=== PATIENT | female | born 1985 | race Caucasian/White ===

== ENCOUNTER 2017-02-17 02:05 | Emergency (ER) | payer SELFPAY ==
[~2017-02-17] VITALS: Ht 157.5 cm; Wt 65.9 kg
[~2017-02-17 02:05] MED LIST: SULF800T23 PO
[2017-02-17 02:16] VITALS: TEMP 36.8; Ht 157.5 cm; Wt 65.9 kg
[2017-02-17] MEDS ORDERED: KETOROLAC TROMETHAMINE 30 MG/ML VIAL IV STA (02:43)
[2017-02-17] MEDS ORDERED: SODIUM CHLORIDE 0.9% 1000ML 1,000 ML IV STA (02:43)
[2017-02-17 03:00] LABS: BASO % 0.8 %; BASO ABS # 0.05 K/uL (0-0.2); COMPLETE YES; EOS % 2.7 %; HEMATOCRIT 39.7 % (37-47); IG% 0.3 %; LYMPH % 32.1 %; LYMPH ABS # 2.14 K/uL (1.2-3.4); MEAN CELL VOLUME 97.1 fL (80-100); MEAN PLATELET VOLUME 9.5 fL (7.4-10.4); MONO % 7.5 %; NEUT % 56.6 %; PLATELET COUNT 240 K/uL (130-400); RED BLOOD COUNT 4.09 M/uL (4.2-5.4); WHITE BLOOD COUNT 6.66 K/uL (4.8-10.8)
[2017-02-17 03:13] LABS: POINT OF CARE TROPONIN I < 0.030 ng/ml (0-0.045)
[2017-02-17 03:18] LABS: BUN/CREATININE RATIO 16.6 (10-20); CALCIUM 9.2 mg/dl (8.5-10.1); CREATININE 0.91 mg/dl (0.60-1.20); POTASSIUM 3.6 mmol/L (3.5-5.1)
[2017-02-17 03:37] LABS: PREG INTERNAL NEGATIVE QC NEG CLEAR BACKGROUND; PREG INTERNAL POSITIVE QC POS CONTROL LINE
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
[2017-02-17 04:48] VITALS: BP 102/69; PULSE 65; O2SAT 100
--- NOTE | 2017-02-17 06:52 | DIAGNOSTIC IMAGING REPORT ---
CHEST ONE VIEW PORTABLE CLINICAL HISTORY: Atypical chest pain COMPARISON STUDY: No previous studies for comparison. FINDINGS: The cardiac and mediastinal contours are normal. There is no evidence of focal pulmonary consolidation. There is no evidence of failure. No pleural effusions are visualized.[ IMPRESSION: No active disease in the chest. Electronically signed by: Kadeem Huitron M.D. 02/17/2017 6:51 AM Dictated Date/Time: 02/17/2017 6:51 AM
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
== END 2017-02-17 04:50 | disposition home or self-care (01) ==
LOC: C.EDB 02:07
DX: R07.89 Other chest pain (principal); F17.200 Nicotine dependence, unspecified, uncomplicated; Z88.0 Allergy status to penicillin; Z88.1 Allergy status to other antibiotic agents; Z88.5 Allergy status to narcotic agent

== ENCOUNTER 2017-04-09 10:47 | Emergency (ER) | payer SELFPAY ==
[~2017-04-09] VITALS: Ht 160 cm; Wt 63.6 kg
[2017-04-09 10:51] VITALS: BP 123/75; PULSE 98; TEMP 36.6; O2SAT 99; Ht 160 cm; Wt 63.6 kg
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
== END 2017-04-09 12:35 | disposition home or self-care (01) ==
LOC: C.EDB 10:48 → C.EDC 12:35
DX: S09.90XA Unspecified injury of head, initial encounter (principal); Y04.0XXA Assault by unarmed brawl or fight, initial encounter; Y92.009 Unspecified place in unspecified non-institutional (private) residence as the place of occurrence of the external cause; Z86.14 Personal history of Methicillin resistant Staphylococcus aureus infection; Z85.43 Personal history of malignant neoplasm of ovary; Z80.9 Family history of malignant neoplasm, unspecified; F17.210 Nicotine dependence, cigarettes, uncomplicated

== ENCOUNTER 2018-03-26 21:30 | Emergency (ER) | payer SELFPAY ==
[~2018-03-26] VITALS: Ht 160 cm; Wt 70.1 kg
[2018-03-26 21:33] VITALS: TEMP 36.5; Ht 160 cm; Wt 70.1 kg
[2018-03-26] MEDS ORDERED: LORAZEPAM 2 MG/ML 1 ML VIAL IV STA (22:12)
[2018-03-26] MEDS ORDERED: SODIUM CHLORIDE 0.9% 1000ML 1,000 ML IV ONE (22:15)
[2018-03-26 22:35] LABS: BASO % 0.9 %; BASO ABS # 0.05 K/uL (0-0.2); EOS % 3.5 %; HEMATOCRIT 43.2 % (37-47); HEMOGLOBIN 15.3 g/dL (12.0-16.0); IG# 0.02 K/uL (0.00-0.02); LYMPH % 37.2 %; LYMPH ABS # 2.13 K/uL (1.2-3.4); MEAN CELL VOLUME 96.9 fL (80-100); MEAN CORPUSCULAR HEMOGLOBIN 34.3 pg (25-34); MEAN CORPUSCULAR HGB CONC 35.4 g/dl (32-36); MEAN PLATELET VOLUME 9.1 fL (7.4-10.4); MONO % 6.6 %; MONO ABS # 0.38 K/uL (0.11-0.59); NEUT % 51.5 %; NEUT ABS # 2.94 K/uL (1.4-6.5); PLATELET COUNT 245 K/uL (130-400); RED CELL DISTRIBUTION WIDTH CV 12.8 % (11.5-14.5); RED CELL DISTRIBUTION WIDTH SD 44.9 fL (36.4-46.3); WHITE BLOOD COUNT 5.72 K/uL (4.8-10.8)
--- NOTE | 2018-03-26 22:35 | DIAGNOSTIC IMAGING REPORT ---
CT HEAD WITHOUT CONTRAST (CT) CLINICAL HISTORY: Seizure. Headache. Neuro symptoms. COMPARISON STUDY: No previous studies for comparison. TECHNIQUE: Axial CT of the brain is performed from the vertex to the skull base. IV contrast was not administered for this examination. A dose lowering technique was utilized adhering to the principles of ALARA. CT DOSE: 537.48 mGy.cm FINDINGS: No intra or extra-axial mass lesions are visualized. There is no CT evidence of acute cortical infarction. There is no evidence of midline shift. There is no acute hemorrhage. No calvarial fractures are visualized. There is no evidence of pathologic ventricular dilatation. There is no evidence of acute sinusitis IMPRESSION: Normal noncontrast head CT. Electronically signed by: Kadeem Huitron M.D. 03/26/2018 10:34 PM Dictated Date/Time: 03/26/2018 10:33 PM
[2018-03-26 22:38] VITALS: O2SAT 98
[2018-03-26 22:46] LABS: INR 0.9 (0.9-1.1); PTT PATIENT 26.2 SECONDS (21.0-31.0)
[2018-03-26 23:02] LABS: ALBUMIN 3.8 gm/dl (3.4-5.0); CALCIUM 8.7 mg/dl (8.5-10.1); CREATININE 0.89 mg/dl (0.60-1.20); POTASSIUM 3.4 mmol/L (3.5-5.1); TOTAL PROTEIN 7.3 gm/dl (6.4-8.2)
[2018-03-26] MEDS ORDERED: IBUP-1050 PO (23:06)
[2018-03-27 00:51] VITALS: BP 105/70; PULSE 71; O2SAT 97
--- NOTE | 2018-03-27 05:56 | EMERGENCY ROOM VISIT NOTE ---
History First contact with patient: 21:56 Chief Complaint: SEIZURE Stated Complaint: SEIZURE, SPEECH PROBLEMS History of Present Illness The patient is a 32 year old female who presents to the Emergency Room with complaints of seizure that occurred about 11 hours ago. The patient states that she has a history of childhood seizures, however as she entered adulthood these have significantly stopped. She states that in her adult life she is only had 2 or 3 seizures, with the last being roughly 4 years ago. She does not follow with neurology, nor she medicated for her seizures. She states that she was at work today in the morning, and was feeling flushed. She evidently had a witnessed seizure that occurred for 1-2 minutes. The patient was not post ictal, and was able to go home afterwards. The patient states that around 6 PM, roughly 4 hours ago, she noticed that her speech was slowing, and she was having difficulty saying her words. The patient does not report a repeat seizure around that time, and has never had this occur in the past. The patient is not having lightheadedness, neck pain, chest pain, chest tightness, shortness of breath, numbness, or paresthesias. No loss of strength in her arms or legs. She denies chance of , and does not take medication on a regular basis. She is without pain. Her primary concern is for her speech and her seizure earlier today. Review of Systems More than 10 systems were reviewed and otherwise negative with the exception of history of present illness. Past Medical/Surgical History Medical Problems: (1) MRSA (methicillin resistant Staphylococcus aureus) (2) Ovarian cancer Family History Cancer Social History Smoking Status: Current Every Day Smoker Alcohol Use: occasionally Drug Use: none Marital Status: Housing Status: lives with significant other Occupation Status: employed Current/Historical Medications Scheduled PRN Ibuprofen (Advil), 400-600 MG PO Q6H PRN for Headache or Pain Physical Exam Vital Signs Date Time Temp Pulse Resp B/P (MAP) Pulse Ox O2 Delivery O2 Flow Rate FiO2 03/27/18 00:51 71 16 105/70 97 Room Air 03/26/18 23:41 57 16 98/70 96 Room Air 03/26/18 22:43 71 03/26/18 22:38 98 Room Air 03/26/18 22:38 71 20 113/54 96 Room Air 03/26/18 21:33 36.5 96 20 136/97 95 Physical Exam VITALS: Vitals are noted on the nurse's note and reviewed by myself. Vital signs stable. GENERAL: Well-developed, well-nourished, white female with very slow and deliberate speech. There is no slurring of the words. She is cooperative with the examination. HEAD: Normocephalic atraumatic. EARS: External ear normal. External auditory canals clear, tympanic membranes pearly mejia without erythema or effusion bilaterally. EYES: Pupils equal round and reactive to light and accommodation. Conjunctivae without injection, sclerae without icterus. Extraocular movements intact. NOSE: Patent, turbinates without inflammation or discharge. MOUTH: Mucous membranes moist. Tonsils are not enlarged. Pharynx without erythema, blood, or exudate. Uvula midline. Airway patent. NECK: Supple without nuchal rigidity. No lymphadenopathy. No thyromegaly. Cervical spine is nontender. HEART: Regular rate and rhythm without murmurs gallops or rubs. LUNGS: Clear to auscultation bilaterally without wheezes, rales or rhonchi. No retractions or accessory muscle use. ABDOMEN: Positive normal bowel sounds x 4. Soft, nontender, without masses or organomegaly. No guarding or rebound tenderness. MUSCULOSKELETAL: No muscle atrophy, erythema, or edema noted. Full range of motion in all extremities. No tenderness to palpation. Normal gait. Strength 5/5 throughout. NEURO: Patient was alert and oriented to person place and time. CN II through XII grossly intact. No focal neurological deficits. Deep tendon reflexes 2+ throughout. SKIN: The skin was without rashes, erythema, edema, or bruising. Capillary refill less than 2 seconds. Medical Decision & Procedures ER Provider Diagnostic Interpretation: CT HEAD WITHOUT CONTRAST (CT) CLINICAL HISTORY: Seizure. Headache. Neuro symptoms. COMPARISON STUDY: No previous studies for comparison. TECHNIQUE: Axial CT of the brain is performed from the vertex to the skull base. IV contrast was not administered for this examination. A dose lowering technique was utilized adhering to the principles of ALARA. CT DOSE: 537.48 mGy.cm FINDINGS: No intra or extra-axial mass lesions are visualized. There is no CT evidence of acute cortical infarction. There is no evidence of midline shift. There is no acute hemorrhage. No calvarial fractures are visualized. There is no evidence of pathologic ventricular dilatation. There is no evidence of acute sinusitis IMPRESSION: Normal noncontrast head CT. Laboratory Results 03/26/18 22:20 Red Blood Count 4.46, Mean Corpuscular Volume 96.9, Mean Corpuscular Hemoglobin 34.3, Mean Corpuscular Hemoglobin Concent 35.4, Mean Platelet Volume 9.1, Neutrophils (%) (Auto) 51.5, Lymphocytes (%) (Auto) 37.2, Monocytes (%) (Auto) 6.6, Eosinophils (%) (Auto) 3.5, Basophils (%) (Auto) 0.9, Neutrophils # (Auto) 2.94, Lymphocytes # (Auto) 2.13, Monocytes # (Auto) 0.38, Eosinophils # (Auto) 0.20, Basophils # (Auto) 0.05 03/26/18 22:20 Test 03/26/18 22:20 03/26/18 22:25 03/26/18 22:30 03/26/18 22:49 White Blood Count 5.72 K/uL (4.8-10.8) Red Blood Count 4.46 M/uL (4.2-5.4) Hemoglobin 15.3 g/dL (12.0-16.0) Hematocrit 43.2 % (37-47) Mean Corpuscular Volume 96.9 fL (80-100) Mean Corpuscular Hemoglobin 34.3 pg (25-34) Mean Corpuscular Hemoglobin Concent 35.4 g/dl (32-36) Platelet Count 245 K/uL (130-400) Mean Platelet Volume 9.1 fL (7.4-10.4) Neutrophils (%) (Auto) 51.5 % Lymphocytes (%) (Auto) 37.2 % Monocytes (%) (Auto) 6.6 % Eosinophils (%) (Auto) 3.5 % Basophils (%) (Auto) 0.9 % Neutrophils # (Auto) 2.94 K/uL (1.4-6.5) Lymphocytes # (Auto) 2.13 K/uL (1.2-3.4) Monocytes # (Auto) 0.38 K/uL (0.11-0.59) Eosinophils # (Auto) 0.20 K/uL (0-0.5) Basophils # (Auto) 0.05 K/uL (0-0.2) RDW Standard Deviation 44.9 fL (36.4-46.3) RDW Coefficient of Variation 12.8 % (11.5-14.5) Immature Granulocyte % (Auto) 0.3 % Immature Granulocyte # (Auto) 0.02 K/uL (0.00-0.02) Prothrombin Time 9.7 SECONDS (9.0-12.0) Prothromb Time International Ratio 0.9 (0.9-1.1) Activated Partial Thromboplast Time 26.2 SECONDS (21.0-31.0) Partial Thromboplastin Ratio 1.0 Anion Gap 9.0 mmol/L (3-11) Est Creatinine Clear Calc Drug Dose 84.4 ml/min Estimated GFR () 98.7 Estimated GFR (Non- 85.2 BUN/Creatinine Ratio 11.9 (10-20) Calcium Level 8.7 mg/dl (8.5-10.1) Magnesium Level 2.1 mg/dl (1.8-2.4) Total Bilirubin 0.3 mg/dl (0.2-1) Aspartate Amino Transf (AST/SGOT) 23 U/L (15-37) Alanine Aminotransferase (ALT/SGPT) 25 U/L (12-78) Alkaline Phosphatase 78 U/L (45-117) Total Protein 7.3 gm/dl (6.4-8.2) Albumin 3.8 gm/dl (3.4-5.0) Globulin 3.5 gm/dl (2.5-4.0) Albumin/Globulin Ratio 1.1 (0.9-2) Lipase 127 U/L (73-393) Thyroid Stimulating Hormone (TSH) 1.280 uIu/ml (0.300-4.500) Lyme Disease IgG Antibody NEG (NEG) Lyme Disease IgM Antibody NEG (NEG) Bedside Troponin I < 0.030 ng/ml (0-0.045) Urine Color YELLOW Urine Appearance CLEAR (CLEAR) Urine pH 5.5 (4.5-7.5) Urine Specific [place] 1.010 (1.000-1.030) Urine Protein NEG (NEG) Urine Glucose (UA) NEG (NEG) Urine Ketones NEG (NEG) Urine Occult Blood 3+ (NEG) Urine Nitrite NEG (NEG) Urine Bilirubin NEG (NEG) Urine Urobilinogen NEG (NEG) Urine Leukocyte Esterase NEG (NEG) Urine WBC (Auto) 1-5 /hpf (0-5) Urine RBC (Auto) 0-4 /hpf (0-4) Urine Hyaline Casts (Auto) 1-5 /lpf (0-5) Urine Epithelial Cells (Auto) >30 /lpf (0-5) Urine Bacteria (Auto) NEG (NEG) Urine Test NEG (NEG) Urine Opiates Screen NEG (NEG) Urine Methadone, Qualitative NEG (NEG) Urine Barbiturates NEG (NEG) Urine Phencyclidine (PCP) Level NEG (NEG) Ur Amphetamine/Methamphetamine NEG (NEG) MDMA (Ecstasy) Screen NEG (NEG) Urine Benzodiazepines Screen NEG (NEG) Urine Cocaine Metabolite NEG (NEG) Urine Marijuana (THC) NEG (NEG) Ethyl Alcohol mg/dL 172.8 mg/dl (0-3) Medications Administered Medications (Trade) Dose Ordered Sig/Estefani Route Start Time Stop Time Status Last Admin Dose Admin Sodium Chloride 1,000 ml @ 999 mls/hr Q1H1M ONCE IV 03/26/18 22:15 03/26/18 23:15 DC 03/26/18 22:49 999 MLS/HR Lorazepam (Ativan Inj) 0.5 mg NOW STAT IV 03/26/18 22:12 03/26/18 22:17 DC 03/26/18 22:49 0.5 MG ED Course Physical exam and history were performed. Nursing notes, EMR, and Medication List were personally reviewed. Patient appears to have suffered from a seizure earlier today. She reports having changes in her speech this afternoon. On examination the patient does not appear toxic. She is very slow and deliberate with her speaking. She does not have any limb weakness or ataxia. No facial drooping to suggest stroke. IV access was established and labs were obtained. The patient was hydrated and medicated as above. She was cared for under seizure precautions. CT scan of the head was ordered. The patient's blood work is as above and was reviewed. She does not have a significantly elevated white blood cell count, gross anemia, bandemia, or significant electrolyte imbalance. Lipase and transaminases are not diagnostic. TSH is euthyroid state. Urine is without evidence of infection. Drug of abuse screen is negative. The patient' s alcohol is elevated at 172, which certainly could be contributing to some of her symptoms. CT scan of the head was without acute findings per my and radiology's interpretation. By discharge On reevaluation the patient felt much better, although her speech did remain slow. I discussed the case with the on-call neurologist, Dr. Valles, who was comfortable with outpatient follow-up with neurology for the patient. I did discuss options of care with the patient, who voiced a strong preference for discharge home. Overall the patient's symptoms this morning may have been related to a seizure, but I suspect that her evening symptoms are related to alcohol intoxication. 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 This was faxed to the state and the patient was instructed not to drive until further notice. The patient was pleased with this plan and voiced understanding. She was given further instructions as below and otherwise invited back to the ER with any new, , worsening, or concerning symptoms. The patient was discharged home under the care of a friend who is acting as the coach driver today. The chart was completed utilizing [employer] Speech Voice Recognition Software. Grammatical errors, random word insertions, pronoun errors, and incomplete sentences are an occasional consequence of this system due to software limitations, ambient noise, and hardware issues. Any formal questions or concerns about the content, text, or information contained within the body of this dictation should be directly addressed to the provider for clarification. . Medical Decision Differential diagnosis: Etiologies such as infection, hypoglycemia, electrolyte abnormalities, cardiac sources, intracerebral event, trauma, toxicologic, neurologic, as well as others were entertained. Impression Primary Impression: Seizure Additional Impressions: Alcohol intoxication Speech disturbance Departure Information Dispostion Home / Self-Care Condition GOOD Referrals Asia Valles D.O. Forms HOME CARE DOCUMENTATION FORM, Work Instructions, Additional Instructions: Patient was seen and evaluated today in the emergency department fo medical care. Return to work on 03/30/2018. Please excuse. IMPORTANT VISIT INFORMATION Patient Instructions My [facility] Additional Instructions You were seen and evaluated today on an emergency basis only. This is not a substitute for, or an effort to provide, complete comprehensive medical care. It is not possible to recognize and treat all injuries or illnesses in a single emergency department visit. For this reason it is recommended that you followup with Neurology for ongoing care and evaluation. We have provided you the information for Dr. Valles below. Call the office to help schedule an appointment. Drink plenty of fluids and remain well-hydrated. Avoid alcohol as this may trigger your symptoms. Do not drive a vehicle or operate heavy machinery until cleared by neurology. We are mandatory report appears to the [place] Department of transportation , and they may contact you regarding your visit. You are welcome to return to the emergency department anytime with new, worsening, or concerning symptoms. Work Instructions Additional Work Instructions: Patient was seen and evaluated today in the emergency department for medical care. Return to work on 03/30/2018. Please excuse. Problem Qualifiers
== END 2018-03-27 01:56 | disposition home or self-care (01) ==
LOC: C.EDB 21:31 → C.EDA 03-27 01:56
DX: R56.9 Unspecified convulsions (principal); F10.920 Alcohol use, unspecified with intoxication, uncomplicated; R47.9 Unspecified speech disturbances; A49.02 Methicillin resistant Staphylococcus aureus infection, unspecified site; D49.59 Neoplasm of unspecified behavior of other genitourinary organ; F17.200 Nicotine dependence, unspecified, uncomplicated

== ENCOUNTER 2020-05-15 07:33 | Inpatient (IN) ==
[2020-05-15] MEDS ORDERED: OXYTOCIN 30 UNITS/500 ML BAG IV PRN (09:39)
--- NOTE | 2020-05-15 10:09 | Obstetrical Progress Note ---
Date of Service May 15, 2020 Assessment & Plan Admission and Anticipated Discharge Date Admission Date: May 15, 2020 Subjective Pt doing well Reviewed PNC Hx of drug use- Urine tox ordered Hx of MRSA-Nasal swab ordered FHR; CAT1 VE; ft/25%/post EFW; 7-8lbs Jones bulb placed with 30 cc saline pt tolerated procedure well Starting Pitocin augmentation Results & Data ([facility]) Vital Signs (Past 12 Hours) Vital Signs Temp Pulse Resp BP 05/15/20 07:46 36.7 C 90 16 123/75
[2020-05-15] MEDS: LACTATED RINGER'S 1,000 ML IV PRN ×3 (10:27→23:09)
[2020-05-15 10:50] LABS: Amphetamines+Metham, Urine Neg (Neg); Barbiturates, Urine Neg (Neg); Benzodiazepine, Urine Neg (Neg); Cocaine, Urine Neg (Neg); MDMA (Ecstacy), Urine Neg (Neg); Methadone, Urine Neg (Neg); Opiate, Urine Neg (Neg); Phencyclidine, Urine Neg (Neg)
[2020-05-15 10:52] LABS: Hematocrit (blood only) 32.2 % (37-47); Mean Corpuscular Hemoglobin 33.3 pg (25-34); Mean Corpuscular Volume 97.6 fL (80-100); Mean Platelet Volume 9.8 fL (7.4-10.4); Platelet Count 211 K/uL (130-400); RDW Coefficient of Variation 13.8 % (11.5-14.5); RDW Standard Deviation 48.7 fL (36.4-46.3); White Blood Count 7.14 K/uL (4.8-10.8)
[2020-05-15 11:02] LABS: Mean Corpuscular Hgb Conc 34.2 g/dL (32-36)
[2020-05-15] MEDS: OXYTOCIN 30 UNITS/500 ML BAG IV PRN (11:07)
[2020-05-15 11:08] LABS: Albumin Level 2.9 gm/dl (3.4-5.0); BUN Creatinine Ratio 13.4 (10-20); Calcium 9.6 mg/dl (8.5-10.1); Creatinine Clr Calc Pharmacy 112.2 ml/min; Est GFR (African American) 130.1; Est GFR (Non-African American) 112.3; Potassium 3.9 mmol/L (3.5-5.1)
[2020-05-15 11:10] LABS: Albumin Globulin Ratio 0.7 (0.9-2); Bilirubin,Total 0.4 mg/dl (0.2-1); Total Protein 6.9 gm/dl (6.4-8.2)
[2020-05-16] MEDS: LACTATED RINGER'S 1,000 ML IV PRN ×2 (09:33→14:37)
--- NOTE | 2020-05-16 09:43 | Obstetrical Progress Note ---
Date of Service May 16, 2020 Assessment & Plan Admission and Anticipated Discharge Date Admission Date: May 15, 2020 Physical Exam Genitourinary: Manual OB Exam: + cervical dilation 4 cm, + cervical effacement 90% and + station -2 OB Exam Monitor Tracing: + external FHT monitor used, + external uterine monitor used, + category I and + normal FHT variability Results & Data ([facility]) Vital Signs (Past 12 Hours) Vital Signs Temp Pulse Resp BP 05/16/20 09:17 58 L 103/54 L 05/16/20 09:16 36.6 C 18 05/16/20 08:09 58 L 105/56 L 05/16/20 07:13 74 125/61 05/16/20 07:05 36.8 C 20 05/16/20 05:13 36.9 C 18 05/16/20 04:40 63 117/63 05/16/20 03:27 36.8 C 05/16/20 03:10 64 112/66 05/16/20 02:10 63 101/59 L 05/16/20 01:28 36.8 C 18 05/16/20 01:10 78 111/66 05/16/20 00:08 75 114/64 05/15/20 23:08 76 129/69 05/15/20 22:08 69 118/67 05/15/20 22:07 36.9 C 18
[2020-05-16] MEDS ORDERED: ePHEDrine sulfate 50 MG/ML AMP ONE (09:47)
[2020-05-16] MEDS ORDERED: BUPIVACAINE 0.25% 30 ML VIAL ONE (09:48)
[2020-05-16] MEDS ORDERED: fentaNYL citrate 100 MCG/2 ML VIAL ONE (09:48)
[2020-05-16] MEDS ORDERED: fentaNYL 2MCG/ML ROPIVACAINE 1.25MG/ML 100 ML BAG EPI ONE (09:49)
--- NOTE | 2020-05-16 10:34 | Anesthesiology Consultation ---
Date of Service May 16, 2020 Assessment & Plan Chart Review Chart Review: Acceptable Risk for Labor Epidural Consults Requested none History Height/Weight Height: 5 ft 3 in Weight: 79.832 kg Allergies Allergy/AdvReac Type Severity Reaction Status Date / Time amoxicillin Allergy Mild Hives Verified 05/15/20 07:56 codeine Allergy Mild Anaphylaxis Verified 05/15/20 07:56 morphine Allergy Mild Anaphylaxis Verified 05/15/20 07:56 Penicillins Allergy Mild Hives Verified 05/15/20 07:56 Medications Home Medications Medication Instructions Recorded Confirmed Last Taken acetaminophen [Tylenol] 650 mg PO QID PRN 05/15/20 05/15/20 Unknown vit no.[id number] 1 tab PO DAILY 05/15/20 05/15/20 05/14/20 00:01 [ Vitamin] Active Medications Generic Name Dose Route Start Last Admin Trade Name Freq PRN Reason Stop Dose Admin Lactated Ringer's 1,000 mls @ 125 mls/hr 05/15/20 09:39 05/16/20 09:33 Lr IV 05/17/20 09:38 999 mls/hr .Q8H PRN Administration L&D Protocol Protocol Oxytocin 30 units in 500 mls @ 0 mls/hr 05/15/20 10:29 05/16/20 09:55 Pitocin IV 05/17/20 10:28 0 units/hr .Q0M PRN 0 mls/hr Labor Induction/Augmentation Titration Protocol 0 UNITS/HR Past Medical History Medical History Anxiety and depression patient declines but in record. 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 Substance abuse Past Surgical History Surgical History H/O wisdom tooth extraction Social History Smoking Status: Current every day smoker tobacco type: cigarettes Smoking cigarettes per day: 4 Hx Alcohol Use: Yes (last used approx 05/04/2020) Alcohol type: other alcohol intake frequency: a few times a month Alcohol Intake Frequency Comment: while patient has used alcohol last time used was approx 05/04/2020 Hx Substance Use: Yes (uses medical marijuana ) substance use type: marijuana Substance Use Type Other:: medical marijuana Last Used Substance: Days (ago) Last Used Substance Other:: 05/12/2020 Physical Exam Vital Signs Last Vital Signs Temp 36.6 C 05/16/20 09:16 Pulse 62 05/16/20 10:31 Resp 18 05/16/20 09:16 BP 135/85 05/16/20 10:31 Pulse Ox 100 05/16/20 10:30 Testing Laboratory Results 05/15/20 10:25 05/15/20 10:25
[2020-05-16] MEDS ORDERED: diphenhydrAMINE 50 MG/ML VIAL IV PRN (10:36)
[2020-05-16] MEDS ORDERED: NALOXONE HCL 1 MG in SODIUM CHLORIDE 0.9% 1000ML 1,000 ML IV PRN (10:36)
[2020-05-16] MEDS ORDERED: fentaNYL 2MCG/ML ROPIVACAINE 1.25MG/ML 100 ML BAG EPI PRN (10:36)
[2020-05-16] MEDS ORDERED: ePHEDrine sulfate 50 MG/ML AMP IV PRN ×2 (10:36→21:08)
[2020-05-16] MEDS ORDERED: NALOXONE HCL 0.4 MG/1 ML VIAL/CARP IV PRN (10:36)
[2020-05-16] MEDS: OXYTOCIN 30 UNITS/500 ML BAG IV PRN ×2 (10:58→14:04)
--- NOTE | 2020-05-16 17:09 | Obstetrical Progress Note ---
Date of Service May 16, 2020 Assessment & Plan Admission and Anticipated Discharge Date Admission Date: May 15, 2020 Physical Exam Genitourinary: Manual OB Exam: + cervical dilation 4 cm, + cervical effacement 100% and + station -2 OB Exam Monitor Tracing: + external FHT monitor used and + category I Results & Data ([facility]) Vital Signs (Past 12 Hours) Vital Signs Temp Pulse Resp BP Pulse Ox Pulse Ox 05/16/20 17:05 87 100 05/16/20 17:04 66 104/57 L 05/16/20 17:00 98 H 18 98 05/16/20 16:55 102 H 106/62 99 05/16/20 16:50 92 H 96 05/16/20 16:45 98 H 110/62 97 05/16/20 16:40 70 97 05/16/20 16:35 89 96 05/16/20 16:33 90 101/59 L 05/16/20 16:30 87 18 97 05/16/20 16:25 69 97 05/16/20 16:24 60 107/57 L 05/16/20 16:20 77 96 05/16/20 16:15 70 96 05/16/20 16:14 65 101/56 L 05/16/20 16:10 62 98 05/16/20 16:05 65 104/56 L 97 05/16/20 16:00 67 98 05/16/20 15:55 67 97 05/16/20 15:54 61 99/58 L 05/16/20 15:50 75 97 05/16/20 15:45 64 103/55 L 96 05/16/20 15:40 64 97 05/16/20 15:35 65 97 05/16/20 15:34 63 107/59 L 05/16/20 15:30 37.1 C 69 18 96 05/16/20 15:25 61 98 05/16/20 15:23 58 L 119/68 05/16/20 15:20 64 96 05/16/20 15:15 61 96 05/16/20 15:14 61 116/62 05/16/20 15:10 60 96 05/16/20 15:05 61 96 05/16/20 15:03 62 103/62 05/16/20 15:00 60 97 05/16/20 14:55 59 L 96 05/16/20 14:54 58 L 124/65 05/16/20 14:50 60 97 05/16/20 14:45 60 96 05/16/20 14:43 58 L 117/66 05/16/20 14:40 62 96 05/16/20 14:35 61 97 05/16/20 14:33 57 L 124/74 05/16/20 14:30 58 L 18 96 05/16/20 14:25 62 99 05/16/20 14:23 63 122/71 05/16/20 14:20 57 L 97 05/16/20 14:15 58 L 97 05/16/20 14:13 59 L 116/64 05/16/20 14:10 61 96 05/16/20 14:05 58 L 98 05/16/20 14:04 60 113/84 05/16/20 14:00 61 97 05/16/20 13:55 61 99 05/16/20 13:53 59 L 118/61 05/16/20 13:50 60 99 05/16/20 13:45 62 117/60 99 05/16/20 13:44 18 05/16/20 13:40 87 99 05/16/20 13:35 113 H 99 05/16/20 13:34 62 100/52 L 05/16/20 13:30 63 97 05/16/20 13:25 71 98/51 L 98 05/16/20 13:20 64 98 05/16/20 13:17 37.1 C 18 05/16/20 13:15 61 98 05/16/20 13:14 59 L 105/57 L 05/16/20 13:10 65 97 05/16/20 13:05 62 101/52 L 98 05/16/20 13:00 63 98 05/16/20 12:55 62 99 05/16/20 12:53 59 L 102/59 L 05/16/20 12:50 61 97 05/16/20 12:45 60 97 05/16/20 12:44 59 L 102/55 L 05/16/20 12:40 62 97 05/16/20 12:35 61 100 05/16/20 12:33 60 105/58 L 05/16/20 12:30 64 98 05/16/20 12:25 63 97 05/16/20 12:24 62 18 103/52 L 05/16/20 12:20 63 98 05/16/20 12:15 61 99 05/16/20 12:13 60 104/55 L 05/16/20 12:10 60 108/57 L 98 05/16/20 12:07 65 105/59 L 05/16/20 12:05 60 98 05/16/20 12:04 60 111/56 L 05/16/20 12:01 59 L 96/52 L 05/16/20 12:00 60 99 05/16/20 11:56 63 92/52 L 05/16/20 11:55 72 99 05/16/20 11:50 83 99 05/16/20 11:45 62 98 05/16/20 11:40 72 115/68 99 05/16/20 11:35 64 99 05/16/20 11:30 36.7 C 56 L 18 100 05/16/20 11:26 56 L 123/73 05/16/20 11:25 60 100 05/16/20 11:20 58 L 100 05/16/20 11:15 55 L 99 05/16/20 11:12 65 112/73 05/16/20 11:10 100 H 100 05/16/20 11:05 58 L 99 05/16/20 11:00 62 98 05/16/20 10:55 60 106/55 L 99 05/16/20 10:52 57 L 111/59 L 05/16/20 10:50 60 99 05/16/20 10:49 59 L 109/52 L 05/16/20 10:46 63 130/73 05/16/20 10:45 57 L 100 05/16/20 10:43 61 137/65 05/16/20 10:40 56 L 99 05/16/20 10:39 56 L 108/57 L 05/16/20 10:37 52 L 109/57 L 100 05/16/20 10:35 58 L 100 05/16/20 10:34 64 109/58 L 05/16/20 10:31 62 135/85 05/16/20 10:30 55 L 100 05/16/20 10:28 56 L 87/51 L 05/16/20 10:25 73 84/47 L 97 05/16/20 10:22 63 104/55 L 05/16/20 10:20 89 99 05/16/20 10:16 62 130/84 05/16/20 10:15 62 100 05/16/20 10:10 64 100 05/16/20 10:05 63 100 05/16/20 10:00 18 05/16/20 09:46 73 127/73 05/16/20 09:17 58 L 103/54 L 05/16/20 09:16 36.6 C 18 05/16/20 08:30 18 05/16/20 08:09 58 L 105/56 L 05/16/20 07:13 36.6 C 74 18 125/61 05/16/20 07:05 36.8 C 20 05/16/20 05:13 36.9 C 18
[2020-05-16] MEDS ORDERED: CITRIC ACID/SODIUM CITRATE 15 ML UDC PO SCH (19:30)
[2020-05-16] MEDS ORDERED: CLINDAMYCIN 900 MG in DEXTROSE 5% 50 ML IV ONE (19:34)
--- NOTE | 2020-05-16 19:34 | Obstetrical Progress Note ---
Date of Service May 16, 2020 Assessment & Plan Admission and Anticipated Discharge Date Admission Date: May 15, 2020 Physical Exam Genitourinary: Manual OB Exam: + cervical dilation 4 cm, + cervical effacement 100%, + station -2 and + amniotic fluid clear OB Exam Monitor Tracing: + external FHT monitor used, + external uterine monitor used and + category II no change in cervix with tachycardia continues to leak clear fluid will proceed with for Cat 2 FHT remote from delivery Results & Data ([facility]) Vital Signs (Past 12 Hours) Vital Signs Temp Pulse Resp BP Pulse Ox Pulse Ox 05/16/20 19:30 113 H 96 05/16/20 19:25 100 H 100 05/16/20 19:22 111 H 92 05/16/20 19:20 79 98 05/16/20 19:16 100 H 91 05/16/20 19:15 85 120/68 98 05/16/20 19:10 85 91 05/16/20 19:05 96 H 100 05/16/20 19:04 80 100/56 L 05/16/20 19:00 86 99 05/16/20 18:56 76 108/56 L 05/16/20 18:55 79 100 05/16/20 18:50 104 H 100 05/16/20 18:46 98 H 90 05/16/20 18:45 109 H 98 05/16/20 18:43 90 116/69 05/16/20 18:41 92 H 90 05/16/20 18:40 91 H 100 05/16/20 18:35 116 H 82 L 05/16/20 18:33 97 H 119/70 05/16/20 18:30 101 H 18 100 05/16/20 18:29 105 H 89 L 05/16/20 18:25 86 123/67 100 05/16/20 18:24 93 H 93 05/16/20 18:20 103 H 100 05/16/20 18:18 88 91 05/16/20 18:15 92 H 99 05/16/20 18:14 86 115/63 05/16/20 18:10 116 H 100 05/16/20 18:05 83 99 05/16/20 18:04 82 117/58 L 05/16/20 18:00 80 100 05/16/20 17:55 62 100 05/16/20 17:54 64 133/74 05/16/20 17:50 67 99 05/16/20 17:45 68 99 05/16/20 17:43 68 130/73 05/16/20 17:40 73 100 05/16/20 17:35 73 100 05/16/20 17:34 67 118/66 05/16/20 17:30 66 100 05/16/20 17:25 72 100 05/16/20 17:24 66 106/68 05/16/20 17:20 76 100 05/16/20 17:15 97 H 100 05/16/20 17:14 101 H 116/67 05/16/20 17:10 108 H 100 05/16/20 17:05 87 100 05/16/20 17:04 66 104/57 L 05/16/20 17:03 36.6 C 18 05/16/20 17:00 98 H 18 98 05/16/20 16:55 102 H 106/62 99 05/16/20 16:50 92 H 96 05/16/20 16:45 98 H 110/62 97 05/16/20 16:40 70 97 05/16/20 16:35 89 96 05/16/20 16:33 90 101/59 L 05/16/20 16:30 87 18 97 05/16/20 16:25 69 97 05/16/20 16:24 60 107/57 L 05/16/20 16:20 77 96 05/16/20 16:15 70 96 05/16/20 16:14 65 101/56 L 05/16/20 16:10 62 98 05/16/20 16:05 65 104/56 L 97 05/16/20 16:00 67 98 05/16/20 15:55 67 97 05/16/20 15:54 61 99/58 L 05/16/20 15:50 75 97 05/16/20 15:45 64 103/55 L 96 05/16/20 15:40 64 97 05/16/20 15:35 65 97 05/16/20 15:34 63 107/59 L 05/16/20 15:30 37.1 C 69 18 96 05/16/20 15:25 61 98 05/16/20 15:23 58 L 119/68 05/16/20 15:20 64 96 05/16/20 15:15 61 96 05/16/20 15:14 61 116/62 05/16/20 15:10 60 96 05/16/20 15:05 61 96 05/16/20 15:03 62 103/62 05/16/20 15:00 60 97 05/16/20 14:55 59 L 96 05/16/20 14:54 58 L 124/65 05/16/20 14:50 60 97 05/16/20 14:45 60 96 05/16/20 14:43 58 L 117/66 05/16/20 14:40 62 96 05/16/20 14:35 61 97 05/16/20 14:33 57 L 124/74 05/16/20 14:30 58 L 18 96 05/16/20 14:25 62 99 05/16/20 14:23 63 122/71 05/16/20 14:20 57 L 97 05/16/20 14:15 58 L 97 05/16/20 14:13 59 L 116/64 05/16/20 14:10 61 96 05/16/20 14:05 58 L 98 05/16/20 14:04 60 113/84 05/16/20 14:00 61 97 05/16/20 13:55 61 99 05/16/20 13:53 59 L 118/61 05/16/20 13:50 60 99 05/16/20 13:45 62 117/60 99 05/16/20 13:44 18 05/16/20 13:40 87 99 05/16/20 13:35 113 H 99 05/16/20 13:34 62 100/52 L 05/16/20 13:30 63 97 05/16/20 13:25 71 98/51 L 98 05/16/20 13:20 64 98 05/16/20 13:17 37.1 C 18 05/16/20 13:15 61 98 05/16/20 13:14 59 L 105/57 L 05/16/20 13:10 65 97 05/16/20 13:05 62 101/52 L 98 05/16/20 13:00 63 98 05/16/20 12:55 62 99 05/16/20 12:53 59 L 102/59 L 05/16/20 12:50 61 97 05/16/20 12:45 60 97 05/16/20 12:44 59 L 102/55 L 05/16/20 12:40 62 97 05/16/20 12:35 61 100 05/16/20 12:33 60 105/58 L 05/16/20 12:30 64 98 05/16/20 12:25 63 97 05/16/20 12:24 62 18 103/52 L 05/16/20 12:20 63 98 05/16/20 12:15 61 99 05/16/20 12:13 60 104/55 L 05/16/20 12:10 60 108/57 L 98 05/16/20 12:07 65 105/59 L 05/16/20 12:05 60 98 05/16/20 12:04 60 111/56 L 05/16/20 12:01 59 L 96/52 L 05/16/20 12:00 60 99 05/16/20 11:56 63 92/52 L 05/16/20 11:55 72 99 05/16/20 11:50 83 99 05/16/20 11:45 62 98 05/16/20 11:40 72 115/68 99 05/16/20 11:35 64 99 05/16/20 11:30 36.7 C 56 L 18 100 05/16/20 11:26 56 L 123/73 05/16/20 11:25 60 100 05/16/20 11:20 58 L 100 05/16/20 11:15 55 L 99 05/16/20 11:12 65 112/73 05/16/20 11:10 100 H 100 05/16/20 11:05 58 L 99 05/16/20 11:00 62 98 05/16/20 10:55 60 106/55 L 99 05/16/20 10:52 57 L 111/59 L 05/16/20 10:50 60 99 05/16/20 10:49 59 L 109/52 L 05/16/20 10:46 63 130/73 05/16/20 10:45 57 L 100 05/16/20 10:43 61 137/65 05/16/20 10:40 56 L 99 05/16/20 10:39 56 L 108/57 L 05/16/20 10:37 52 L 109/57 L 100 05/16/20 10:35 58 L 100 05/16/20 10:34 64 109/58 L 05/16/20 10:31 62 135/85 05/16/20 10:30 55 L 100 05/16/20 10:28 56 L 87/51 L 05/16/20 10:25 73 84/47 L 97 05/16/20 10:22 63 104/55 L 05/16/20 10:20 89 99 05/16/20 10:16 62 130/84 05/16/20 10:15 62 100 05/16/20 10:10 64 100 05/16/20 10:05 63 100 05/16/20 10:00 18 05/16/20 09:46 73 127/73 05/16/20 09:17 58 L 103/54 L 05/16/20 09:16 36.6 C 18 05/16/20 08:30 18 05/16/20 08:09 58 L 105/56 L
[2020-05-16] MEDS ORDERED: CITRIC ACID/SODIUM CITRATE 15 ML UDC ONE (19:42)
[2020-05-16] MEDS ORDERED: LACTATED RINGER'S 1,000 ML IV SCH ×2 (19:45→21:15)
[2020-05-16] MEDS ORDERED: LIDOCAINE/EPINEPHRINE 2% 1:200,000 20 ML SDV ONE (19:46)
[2020-05-16] MEDS ORDERED: PHENYLEPHRINE 100MCG/ML 5ML SYR ONE (20:48)
[2020-05-16] MEDS ORDERED: OXYTOCIN 10 UNITS/ML VIAL ONE (20:48)
[2020-05-16] MEDS ORDERED: ONDANSETRON INJ 2 MG/ML 2 ML VIAL ONE (20:48)
--- NOTE | 2020-05-16 20:53 | History & Physical Bridge Note ---
Date of Service May 16, 2020 History & Physical Bridge Note I have examined the patient, reviewed the History & Physical and in the interval since the performance of the History & Physical I have noted the following changes of clinical significance: no changes noted
--- NOTE | 2020-05-16 20:53 | Post Operative Brief Note ---
Immediate Post Op Note v1 Date of Surgery May 16, 2020 Pre & Post Diagnosis Operation Date: 05/16/20 19:35 Pre-Op Diagnosis: 1. Intolerance to labor Post-Op Diagnosis: 1. Intolerance to labor 2. Delivery of live male child at 2019 I identified the patient and participated in the time-out.: Yes Procedure Operation Date: 05/16/20 19:35 Actual Procedures p Section in LD - Zachary Serrato MD Surgeon Zachary Serrato MD Glaciologist Dr Spaulding Estimated Blood Loss 600 Findings Consistent with Post-Op Diagnosis live male Apgars 9/9 Fluids 600 ml Specimens placenta cord blood Drains Jones Catheter Anesthesia Type Labor Epidural Complications none Disposition Accompanied Patient To Recovery: Yes Disposition: L&D Overlapping Procedure I was immediately available: during the entire case. Back up surgeon: used during listed procedure.
[2020-05-16] MEDS ORDERED: ONDANSETRON INJ 2 MG/ML 2 ML VIAL IV PRN (21:08)
[2020-05-16] MEDS ORDERED: SUPERCREAM 0.870% 15 GM JAR EXT PRN (21:08)
[2020-05-16] MEDS ORDERED: SENNA 8.6 MG TAB PO PRN (21:08)
[2020-05-16] MEDS ORDERED: MAGNESIUM HYDROXIDE SUSP 30 ML UDC PO PRN (21:08)
[2020-05-16] MEDS ORDERED: PROMETHAZINE HCL 12.5 MG in SODIUM CHLORIDE 0.9% 50 ML IV PRN (21:08)
[2020-05-16] MEDS ORDERED: HYDROmorphone INJ 2 MG/ML SYR/VIAL IV PRN (21:08)
[2020-05-16] MEDS ORDERED: fentaNYL citrate 100 MCG/2 ML VIAL IV PRN (21:08)
[2020-05-16] MEDS ORDERED: DIPHTHERIA/TETANUS/PERTUSSIS 0.5 ML SYR/VIAL IM ONE (21:08)
[2020-05-16] MEDS ORDERED: METOCLOPRAMIDE HCL INJ 5 MG/ML 2 ML VIAL IV PRN (21:08)
[2020-05-16] MEDS ORDERED: KETOROLAC 30 MG/ML VIAL IV PRN (21:08)
[2020-05-16] MEDS ORDERED: BENZOCAINE 20% AER SPR 82.5 GM CAN EXT PRN (21:08)
[2020-05-16] MEDS ORDERED: HYDROCORTISONE ACETATE 25 MG SUPP PR PRN (21:08)
[2020-05-16] MEDS ORDERED: ATROPINE SULFATE 0.1 MG/ML 10ML SYR IV PRN (21:08)
--- NOTE | 2020-05-16 21:10 | Anesthesia Procedure Note ---
Date of Service May 16, 2020 Anesthesia Post Epidural Note Vital Signs Vital Signs: Temp Pulse Resp BP Pulse Ox 36.7 C 131 H 20 99/62 L 99 05/16/20 19:05 05/16/20 21:08 05/16/20 20:01 05/16/20 20:59 05/16/20 21:08 Pain Intensity Lower Abdomen: Pain Intensity: 0 Notes Mental Status: alert / awake / arousable Nausea / Vomiting: adequately controlled Pain: adequately controlled Airway Patency, RR, SpO2: stable & adequate BP & HR: stable & adequate Hydration State: stable & adequate Neuraxial Anesthesia: was administered and sensory block is resolving Anesthetic Complications: no major complications apparent and Pt Satisfied with anesthetic care Epidural: Removed without complications and With tip intact
[2020-05-16] MEDS ORDERED: KETOROLAC 30 MG/ML VIAL ONE (21:12)
[2020-05-16] MEDS: KETOROLAC 30 MG/ML VIAL IV PRN (21:13)
[2020-05-16] MEDS ORDERED: OXYTOCIN 30 UNITS in LACTATED RINGER'S 1,000 ML IV SCH (21:15)
--- NOTE | 2020-05-16 21:34 | Anesthesiology Progress Note ---
Date of Service May 16, 2020 Anesthesia Post Procedure Vital Signs Vital Signs: Temp Pulse Resp BP Pulse Ox Pulse Ox 05/16/20 21:31 123 H 117/60 05/16/20 21:28 126 H 97 05/16/20 21:23 119 H 99 05/16/20 21:21 116 H 124/67 05/16/20 21:20 119 H 20 99 05/16/20 21:18 115 H 98 05/16/20 21:13 123 H 99 05/16/20 21:11 120 H 119/63 05/16/20 21:10 37.7 C H 116 H 20 124/67 05/16/20 21:08 131 H 99 05/16/20 21:05 133 H 83 L 05/16/20 21:03 124 H 100 05/16/20 20:59 139 H 99/62 L 05/16/20 20:58 145 H 98 05/16/20 20:57 142 H 93 05/16/20 20:01 101 H 20 154/75 H 05/16/20 20:00 113 H 100 05/16/20 19:55 150 H 100 05/16/20 19:54 153 H 114/71 05/16/20 19:51 81 130/68 05/16/20 19:50 82 100 05/16/20 19:46 94 H 94 05/16/20 19:45 82 100 05/16/20 19:43 103 H 128/73 05/16/20 19:40 90 100 05/16/20 19:35 115 H 88 L 05/16/20 19:30 113 H 96 05/16/20 19:25 100 H 100 05/16/20 19:22 111 H 92 05/16/20 19:20 79 98 05/16/20 19:16 100 H 91 05/16/20 19:15 85 120/68 98 05/16/20 19:10 85 91 05/16/20 19:05 36.7 C 96 H 100 05/16/20 19:04 80 100/56 L 05/16/20 19:00 86 99 05/16/20 18:56 76 108/56 L 05/16/20 18:55 79 100 05/16/20 18:50 104 H 100 05/16/20 18:46 98 H 90 10/13/20 18:45 109 H 98 05/16/20 18:43 90 116/69 05/16/20 18:41 92 H 90 05/16/20 18:40 91 H 100 05/16/20 18:35 116 H 82 L 05/16/20 18:33 97 H 119/70 05/16/20 18:30 101 H 18 100 05/16/20 18:29 105 H 89 L 05/16/20 18:25 86 123/67 100 05/16/20 18:24 93 H 93 05/16/20 18:20 103 H 100 05/16/20 18:18 88 91 05/16/20 18:15 92 H 99 05/16/20 18:14 86 115/63 05/16/20 18:10 116 H 100 05/16/20 18:05 83 99 05/16/20 18:04 82 117/58 L 05/16/20 18:00 80 100 05/16/20 17:55 62 100 05/16/20 17:54 64 133/74 05/16/20 17:50 67 99 05/16/20 17:45 68 99 05/16/20 17:43 68 130/73 05/16/20 17:40 73 100 05/16/20 17:35 73 100 05/16/20 17:34 67 118/66 05/16/20 17:30 66 100 05/16/20 17:25 72 100 05/16/20 17:24 66 106/68 05/16/20 17:20 76 100 05/16/20 17:15 97 H 100 05/16/20 17:14 101 H 116/67 05/16/20 17:10 108 H 100 05/16/20 17:05 87 100 05/16/20 17:04 66 104/57 L 05/16/20 17:03 36.6 C 18 05/16/20 17:00 98 H 18 98 05/16/20 16:55 102 H 106/62 99 05/16/20 16:50 92 H 96 05/16/20 16:45 98 H 110/62 97 05/16/20 16:40 70 97 05/16/20 16:35 89 96 05/16/20 16:33 90 101/59 L 05/16/20 16:30 87 18 97 10/13/20 16:25 69 97 05/16/20 16:24 60 107/57 L 05/16/20 16:20 77 96 05/16/20 16:15 70 96 05/16/20 16:14 65 101/56 L 05/16/20 16:10 62 98 05/16/20 16:05 65 104/56 L 97 05/16/20 16:00 67 98 05/16/20 15:55 67 97 05/16/20 15:54 61 99/58 L 05/16/20 15:50 75 97 05/16/20 15:45 64 103/55 L 96 05/16/20 15:40 64 97 05/16/20 15:35 65 97 05/16/20 15:34 63 107/59 L 05/16/20 15:30 37.1 C 69 18 96 05/16/20 15:25 61 98 05/16/20 15:23 58 L 119/68 05/16/20 15:20 64 96 05/16/20 15:15 61 96 05/16/20 15:14 61 116/62 05/16/20 15:10 60 96 05/16/20 15:05 61 96 05/16/20 15:03 62 103/62 05/16/20 15:00 60 97 05/16/20 14:55 59 L 96 05/16/20 14:54 58 L 124/65 05/16/20 14:50 60 97 05/16/20 14:45 60 96 05/16/20 14:43 58 L 117/66 05/16/20 14:40 62 96 05/16/20 14:35 61 97 05/16/20 14:33 57 L 124/74 05/16/20 14:30 58 L 18 96 05/16/20 14:25 62 99 05/16/20 14:23 63 122/71 05/16/20 14:20 57 L 97 05/16/20 14:15 58 L 97 05/16/20 14:13 59 L 116/64 05/16/20 14:10 61 96 05/16/20 14:05 58 L 98 05/16/20 14:04 60 113/84 05/16/20 14:00 61 97 05/16/20 13:55 61 99 05/16/20 13:53 59 L 118/61 05/16/20 13:50 60 99 05/16/20 13:45 62 117/60 99 05/16/20 13:44 18 05/16/20 13:40 87 99 05/16/20 13:35 113 H 99 05/16/20 13:34 62 100/52 L 05/16/20 13:30 63 97 05/16/20 13:25 71 98/51 L 98 05/16/20 13:20 64 98 05/16/20 13:17 37.1 C 18 05/16/20 13:15 61 98 05/16/20 13:14 59 L 105/57 L 05/16/20 13:10 65 97 05/16/20 13:05 62 101/52 L 98 05/16/20 13:00 63 98 05/16/20 12:55 62 99 05/16/20 12:53 59 L 102/59 L 05/16/20 12:50 61 97 05/16/20 12:45 60 97 05/16/20 12:44 59 L 102/55 L 05/16/20 12:40 62 97 05/16/20 12:35 61 100 05/16/20 12:33 60 105/58 L 05/16/20 12:30 64 98 05/16/20 12:25 63 97 05/16/20 12:24 62 18 103/52 L 05/16/20 12:20 63 98 05/16/20 12:15 61 99 05/16/20 12:13 60 104/55 L 05/16/20 12:10 60 108/57 L 98 05/16/20 12:07 65 105/59 L 05/16/20 12:05 60 98 05/16/20 12:04 60 111/56 L 05/16/20 12:01 59 L 96/52 L 05/16/20 12:00 60 99 05/16/20 11:56 63 92/52 L 05/16/20 11:55 72 99 05/16/20 11:50 83 99 05/16/20 11:45 62 98 05/16/20 11:40 72 115/68 99 05/16/20 11:35 64 99 05/16/20 11:30 36.7 C 56 L 18 100 05/16/20 11:26 56 L 123/73 05/16/20 11:25 60 100 05/16/20 11:20 58 L 100 05/16/20 11:15 55 L 99 05/16/20 11:12 65 112/73 05/16/20 11:10 100 H 100 05/16/20 11:05 58 L 99 05/16/20 11:00 62 98 05/16/20 10:55 60 106/55 L 99 05/16/20 10:52 57 L 111/59 L 05/16/20 10:50 60 99 05/16/20 10:49 59 L 109/52 L 05/16/20 10:46 63 130/73 05/16/20 10:45 57 L 100 05/16/20 10:43 61 137/65 05/16/20 10:40 56 L 99 05/16/20 10:39 56 L 108/57 L 05/16/20 10:37 52 L 109/57 L 100 05/16/20 10:35 58 L 100 05/16/20 10:34 64 109/58 L 05/16/20 10:31 62 135/85 05/16/20 10:30 55 L 100 05/16/20 10:28 56 L 87/51 L 05/16/20 10:25 73 84/47 L 97 05/16/20 10:22 63 104/55 L 05/16/20 10:20 89 99 05/16/20 10:16 62 130/84 05/16/20 10:15 62 100 05/16/20 10:10 64 100 05/16/20 10:05 63 100 05/16/20 10:00 18 05/16/20 09:46 73 127/73 05/16/20 09:17 58 L 103/54 L 05/16/20 09:16 36.6 C 18 05/16/20 08:30 18 05/16/20 08:09 58 L 105/56 L 05/16/20 07:13 36.6 C 74 18 125/61 05/16/20 07:05 36.8 C 20 05/16/20 05:13 36.9 C 18 05/16/20 04:40 63 117/63 05/16/20 03:27 36.8 C 05/16/20 03:10 64 112/66 05/16/20 02:10 63 101/59 L 05/16/20 01:28 36.8 C 18 05/16/20 01:10 78 111/66 05/16/20 00:08 75 114/64 05/15/20 23:08 76 129/69 05/15/20 22:08 69 118/67 05/15/20 22:07 36.9 C 18 Pain Intensity Lower Abdomen: Pain Intensity: 6 Transfer of Care Handoff Completed per policy Notes Mental Status: alert / awake / arousable and participated in evaluation Patient Amnestic to Procedure: Yes Nausea / Vomiting: adequately controlled Pain: adequately controlled Airway Patency, RR, SpO2: stable & adequate BP & HR: stable & adequate Hydration State: stable & adequate Neuraxial Anesthesia: was administered and sensory block is resolving Anesthetic Complications: no major complications apparent
[2020-05-16] MEDS ORDERED: ACETAMINOPHEN 325 MG TAB PO PRN (21:39)
[2020-05-16] MEDS ORDERED: ACETAMINOPHEN 1000 MG/100 ML IV IV PRN (21:53)
[2020-05-17] MEDS ORDERED: MEPERIDINE HCL 50 MG/ML CARP ONE (01:34)
--- NOTE | 2020-05-17 02:02 | Operative Report (OR) ---
DATE OF OPERATION: 05/16/2020 PREOPERATIVE DIAGNOSIS: Nonreassuring heart tone category 2 strip, remote from delivery. POSTOPERATIVE DIAGNOSIS: Nonreassuring heart tone category 2 strip, remote from delivery. PROCEDURE: Primary section, low segment, transverse. SURGEON: Zachary Serrato MD CAREER TECHNICAL COUNSELOR: Dr. Spaulding. ANESTHESIA: Epidural. CLINICAL HISTORY: The patient is a 34-year-old female, para 1-0-0-1 at 40 weeks and 1 day who presents for a second day induction progressing to 4 cm with persistent tachycardia. She remained at 4 cm remote from delivery and because of the non-reassuring FHT category 2 strip and remote from delivery the patient was brought to the OR for a section. DESCRIPTION OF PROCEDURE: Under satisfactory epidural anesthesia, the patient was prepped and draped in the usual sterile fashion. Timeout was called prior to the start of the case and antibiotics were given preop. A low Pfannenstiel incision was made, carrying the incision down into the abdominal layers in successive layers without difficulty. Following this, the vertex was high in the pelvis. The bladder flap was made with sharp dissection using Metzenbaum scissors. A low segment transverse incision over the lower uterine segment was made. The incision was widened in the AP diameter. The infant was then delivered from the vertex presentation with the aid of fundal pressure. The fluid was noted to be clear. The baby was delivered from the vertex with Apgars 9 and 9, live male weight pending. The cord was doubly clamped and cut. The baby handed to the fine grade bulldozer operator. A length of cord was obtained for cord gases, which are pending. Cord blood was then obtained. The placenta was then delivered spontaneously and intact and submitted to pathology. Uterus was then exteriorized. Ring forceps were then placed on both angles and the inferior margin. Uterus was closed in a double layer closure with 0 Vicryl suture in a continuous interlocking fashion, followed by a second imbricating suture of 0 Vicryl was used. The tubes, ovaries bilaterally were found to be within normal limits. Initial sponge, needle and instrument count were found to be correct. Uterus was then placed back in the normal anatomical position. All laps and sponges were accounted for. The fascia was then closed from both ends using 0 Vicryl suture in a continuous fashion. Subcuticular space was irrigated. Bleeders were cauterized and the fat layer, subcuticular layer was then closed with 3-0 plain suture, followed by ruben for skin. Clear urine was noted from the Jones 200 mL. Total fluids 600 mL. EBL 600 mL. Telfa and ABD dressing applied.. The final sponge, needle and instrument count were found to be correct. The patient was taken to the recovery room in stable condition. I attest to the content of the Intraoperative Record and any orders documented therein. Any exceptions are noted below. I was present for the entire case. No qualified resident was available . The assistant bookkeeper was used to retract, and provide necessary help with delivery of the baby using fundal pressure and adequate visualization. BOBO
[2020-05-17] MEDS: KETOROLAC 30 MG/ML VIAL IV PRN (03:13)
[2020-05-17] MEDS ORDERED: PROMETHAZINE HCL 25 MG in SODIUM CHLORIDE 0.9% 50 ML IV PRN (05:08)
[2020-05-17] MEDS ORDERED: MEPERIDINE HCL 50 MG/ML CARP IV PRN (05:08)
[2020-05-17] MEDS ORDERED: diphenhydrAMINE 50 MG/ML VIAL IV PRN (05:08)
[2020-05-17] MEDS ORDERED: ONDANSETRON INJ 2 MG/ML 2 ML VIAL IV PRN (05:08)
[2020-05-17] MEDS ORDERED: diphenhydrAMINE Capsule 25 MG CAP PO PRN (05:08)
[2020-05-17 06:56] LABS: Basophils # (auto) 0.02 K/uL (0-0.2); Basophils % (auto) 0.1 %; Eosinophils # (auto) 0.01 K/uL (0-0.5); Eosinophils % (auto) 0.1 %; Hematocrit (blood only) 24.5 % (37-47); Hemoglobin 8.3 g/dL (12.0-16.0); Immature Granulocytes # (auto) 0.07 K/uL (0.00-0.02); Immature Granulocytes % (auto) 0.4 %; Lymphocytes # (auto) 1.05 K/uL (1.2-3.4); Lymphocytes % (auto) 6.5 %; Mean Corpuscular Hemoglobin 33.6 pg (25-34); Mean Corpuscular Hgb Conc 33.9 g/dL (32-36); Mean Corpuscular Volume 99.2 fL (80-100); Mean Platelet Volume 9.8 fL (7.4-10.4); Monocytes # (auto) 0.51 K/uL (0.11-0.59); Monocytes % (auto) 3.1 %; Neutrophils # (auto) 14.57 K/uL (1.4-6.5); Neutrophils % (auto) 89.8 %; Platelet Count 157 K/uL (130-400); RDW Coefficient of Variation 13.8 % (11.5-14.5); RDW Standard Deviation 49.9 fL (36.4-46.3); Red Blood Count 2.47 M/uL (4.2-5.4); White Blood Count 16.23 K/uL (4.8-10.8)
[2020-05-17] MEDS ORDERED: PRENATAL VITAMIN 1 TAB PO SCH (08:00)
[2020-05-17] MEDS: oxyCODONE/ACETAMINOPHEN 5mg/325mg TAB PO PRN ×4 (09:44→23:36)
[2020-05-17] MEDS: FERROUS SULFATE 325 MG TAB PO SCH (09:44)
[2020-05-17] MEDS: SIMETHICONE 80 MG CHEW PO SCH ×4 (09:44→20:08)
[2020-05-17] MEDS: DOCUSATE SODIUM 100 MG CAP PO SCH ×2 (09:44→20:08)
[2020-05-17] MEDS: PRENATAL VITAMIN 1 TAB PO SCH (09:44)
[2020-05-17] MEDS: IBUPROFEN 600 MG TAB PO PRN ×4 (09:45→23:35)
--- NOTE | 2020-05-17 10:20 | Obstetrical Progress Note ---
Date of Service May 17, 2020 Assessment & Plan Admission and Anticipated Discharge Date Admission Date: May 15, 2020 Physical Exam Physical Exam: abdomen soft and non tender no calf tenderness ambulating well vaginal bleeding scant hgb 8.3 Results & Data ([facility]) Vital Signs (Past 12 Hours) Vital Signs Temp Pulse Pulse Pulse Resp BP BP 05/17/20 09:51 37 C 94 H 16 104/68 05/17/20 03:00 36.7 C 94 H 20 102/58 L 05/17/20 00:30 36.7 C 94 H 20 134/82 05/16/20 23:30 106 H 20 139/84 05/16/20 23:08 92 H 05/16/20 23:03 104 H 05/16/20 23:01 94 H 112/56 L 05/16/20 23:00 36.7 C 18 05/16/20 22:58 98 H 05/16/20 22:53 105 H 05/16/20 22:51 100 H 109/56 L 05/16/20 22:48 100 H 05/16/20 22:43 105 H 05/16/20 22:41 111 H 110/44 L 05/16/20 22:38 104 H 05/16/20 22:33 111 H 05/16/20 22:32 107 H 103/65 05/16/20 22:30 111 H 20 05/16/20 22:28 111 H 05/16/20 22:23 109 H 05/16/20 22:21 112 H 113/57 L Pulse Ox 05/17/20 09:51 98 05/17/20 03:00 97 05/17/20 00:30 98 05/16/20 23:30 98 05/16/20 23:08 99 05/16/20 23:03 99 05/16/20 23:01 05/16/20 23:00 05/16/20 22:58 99 05/16/20 22:53 98 05/16/20 22:51 05/16/20 22:48 98 05/16/20 22:43 98 05/16/20 22:41 05/16/20 22:38 98 05/16/20 22:33 98 05/16/20 22:32 05/16/20 22:30 98 05/16/20 22:28 99 05/16/20 22:23 97 05/16/20 22:21
--- NOTE | 2020-05-17 10:44 | Obstetrical Progress Note ---
Date of Service May 17, 2020 Assessment & Plan Admission and Anticipated Discharge Date Admission Date: May 15, 2020 Physical Exam Physical Exam: abdomen soft and non tender bandage clean and dry no calf tenderness ambulating well passing flatus vaginal bleeding scant 8.3 Results & Data ([facility]) Vital Signs (Past 12 Hours) Vital Signs Temp Pulse Pulse Pulse Resp BP BP 05/17/20 09:51 37 C 94 H 16 104/68 05/17/20 03:00 36.7 C 94 H 20 102/58 L 05/17/20 00:30 36.7 C 94 H 20 134/82 05/16/20 23:30 106 H 20 139/84 05/16/20 23:08 92 H 05/16/20 23:03 104 H 05/16/20 23:01 94 H 112/56 L 05/16/20 23:00 36.7 C 18 05/16/20 22:58 98 H 05/16/20 22:53 105 H 05/16/20 22:51 100 H 109/56 L 05/16/20 22:48 100 H 05/16/20 22:43 105 H Pulse Ox 05/17/20 09:51 98 05/17/20 03:00 97 05/17/20 00:30 98 05/16/20 23:30 98 05/16/20 23:08 99 05/16/20 23:03 99 05/16/20 23:01 05/16/20 23:00 05/16/20 22:58 99 05/16/20 22:53 98 05/16/20 22:51 05/16/20 22:48 98 05/16/20 22:43 98
[2020-05-17] MEDS ORDERED: bisacodyL 5 MG TABEC PO SCH (20:00)
[2020-05-18 06:16] LABS: Hematocrit (blood only) 21.5 % (37-47); Hemoglobin 7.3 g/dL (12.0-16.0)
[2020-05-18] MEDS: oxyCODONE/ACETAMINOPHEN 5mg/325mg TAB PO PRN ×3 (08:46→19:08)
[2020-05-18] MEDS: IBUPROFEN 600 MG TAB PO PRN ×3 (08:46→19:09)
[2020-05-18] MEDS: PRENATAL VITAMIN 1 TAB PO SCH (08:46)
[2020-05-18] MEDS: DOCUSATE SODIUM 100 MG CAP PO SCH ×2 (08:46→21:22)
[2020-05-18] MEDS: FERROUS SULFATE 325 MG TAB PO SCH (08:46)
[2020-05-18] MEDS: SIMETHICONE 80 MG CHEW PO SCH ×3 (08:47→21:22)
--- NOTE | 2020-05-18 09:51 | Obstetrical Progress Note ---
Date of Service May 18, 2020 Assessment & Plan (1) delivery delivered: c/sec day #2 pt doing well HGB; 7.3. pt is however asymptomatics will hold off transfusion repeat H/H Ducolax supp ordered Subjective Ambulation: ambulating normally Voiding: no voiding problems Passing Gas:: Yes Diet Tolerance:: clear liquids Lochia:: Small Feeding Type:: breast feeding Review of Systems All systems reviewed & are unremarkable except as noted in HPI & below Physical Exam Constitutional WD/WN, vitals as above well developed and well nourished Eyes PERRL, conjunctivae normal, anicteric sclerae ENMT external ear and nose normal, oropharynx normal Neck trachea midline, no thyromegaly Respiratory normal respiratory effort, lungs clear to auscultation Cardiovascular RRR, no murmur, no edema Chest (Breasts) normal inspection/palpation of breasts Gastrointestinal (Abdomen) normal bowel sounds, soft, nontender, no hepatosplenomegaly Musculoskeletal no cyanosis or clubbing, extremities motor strength 5/5 Skin no rashes, warm and dry + incision (Clean,dry and intact) Neurologic patellar DTR's 2+ bilat, sensation intact Psychiatric A+Ox3, euthymic affect Genitourinary normal external appearance Lymphatic no cervical or axillary lymphadenopathy Results & Data ([facility]) Vital Signs (Past 12 Hours) Vital Signs Temp Pulse Resp BP Pulse Ox 05/18/20 07:55 36.7 C 88 16 105/70 99 05/18/20 00:00 36.9 C 91 H 18 118/82 98
[2020-05-18] MEDS ORDERED: bisacodyL 10 MG SUPP PR STA (09:52)
[2020-05-18 13:16] LABS: Hematocrit (blood only) 23.8 % (37-47)
[2020-05-18] MEDS ORDERED: bisacodyL 10 MG SUPP PR PRN (21:04)
[2020-05-19] MEDS: IBUPROFEN 600 MG TAB PO PRN ×3 (00:05→15:32)
[2020-05-19] MEDS: oxyCODONE/ACETAMINOPHEN 5mg/325mg TAB PO PRN ×3 (00:06→15:31)
[2020-05-19] MEDS: DOCUSATE SODIUM 100 MG CAP PO SCH (08:33)
[2020-05-19] MEDS: PRENATAL VITAMIN 1 TAB PO SCH (08:33)
[2020-05-19] MEDS: FERROUS SULFATE 325 MG TAB PO SCH (08:33)
[2020-05-19] MEDS: SIMETHICONE 80 MG CHEW PO SCH ×3 (08:34→16:43)
--- NOTE | 2020-05-19 10:15 | Surgery Progress Note ---
Date of Service May 19, 2020 Assessment & Plan Admission and Anticipated Discharge Date Admission Date: May 15, 2020 Subjective POD#3 doing well passing gas erin diet ambulating well Physical Exam Constitutional: WD/WN, vitals as above comfortable incision c/d/i abdomen soft and non-tender no edema neg Jasper's for d/c Results & Data ([facility]) Vital Signs (Past 12 Hours) Vital Signs Temp Pulse Resp BP Pulse Ox 05/19/20 08:25 36.7 C 96 H 18 119/72 99 05/19/20 00:10 36.5 C 90 18 111/75 98 Laboratory Results 05/15/20 05/15/20 05/15/20 09:44 09:46 10:25 WBC 7.14 RBC 3.30 L Hgb 11.0 L Hct 32.2 L MCV 97.6 MCH 33.3 MCHC 34.2 RDW Std Deviation 48.7 H RDW Coeff of Jaiden 13.8 Plt Count 211 MPV 9.8 Immature Gran % (Auto) Neut % (Auto) Lymph % (Auto) [place] % (Auto) Eos % (Auto) Baso % (Auto) Neut # (Auto) Lymph # (Auto) [place] # (Auto) Eos # (Auto) Baso # (Auto) Immature Gran # (Auto) Sodium Potassium Chloride Carbon Dioxide Anion Gap BUN Creatinine Est Cr Clr Drug Dosing Est GFR ( Amer) Est GFR (Non-Af Amer) BUN/Creatinine Ratio Glucose Calcium Total Bilirubin AST ALT Alkaline Phosphatase Total Protein Albumin Globulin Albumin/Globulin Ratio Nasal Screen MRSA (PCR) Negative Urine Opiates Screen Neg Ur Methadone, Qual Neg Urine Barbiturates Neg Ur Phencyclidine (PCP) Neg U Amphetamin/Meth Scrn Neg MDMA (Ecstasy) Screen Neg U Benzodiazepines Scrn Neg Ur Cocaine Metabolite Neg U Marijuana (THC) Screen Neg COVID-19 Eval Order SARS-CoV-2, RNA, NAAT Blood Type Antibody Screen Screen 05/15/20 05/16/20 05/16/20 10:25 06:20 06:20 WBC RBC Hgb Hct MCV MCH MCHC RDW Std Deviation RDW Coeff of Jaiden Plt Count MPV Immature Gran % (Auto) Neut % (Auto) Lymph % (Auto) [place] % (Auto) Eos % (Auto) Baso % (Auto) Neut # (Auto) Lymph # (Auto) [place] # (Auto) Eos # (Auto) Baso # (Auto) Immature Gran # (Auto) Sodium 135 L Potassium 3.9 Chloride 104 Carbon Dioxide 23 Anion Gap 8.0 BUN 9 Creatinine 0.70 Est Cr Clr Drug Dosing 112.2 Est GFR ( Amer) 130.1 Est GFR (Non-Af Amer) 112.3 BUN/Creatinine Ratio 13.4 Glucose 87 Calcium 9.6 Total Bilirubin 0.4 AST 33 ALT 44 Alkaline Phosphatase 166 H Total Protein 6.9 Albumin 2.9 L Globulin 4.0 Albumin/Globulin Ratio 0.7 L Nasal Screen MRSA (PCR) Urine Opiates Screen Ur Methadone, Qual Urine Barbiturates Ur Phencyclidine (PCP) U Amphetamin/Meth Scrn MDMA (Ecstasy) Screen U Benzodiazepines Scrn Ur Cocaine Metabolite U Marijuana (THC) Screen COVID-19 Eval Order Covid19 IDNow atMMIC SARS-CoV-2, RNA, NAAT NEGATIVE Blood Type Antibody Screen Screen 05/17/20 05/17/20 05/18/20 06:27 06:27 05:46 WBC 16.23 H RBC 2.47 L Hgb 8.3 L 7.3 L Hct 24.5 L 21.5 L MCV 99.2 MCH 33.6 MCHC 33.9 RDW Std Deviation 49.9 H RDW Coeff of Jaiden 13.8 Plt Count 157 MPV 9.8 Immature Gran % (Auto) 0.4 Neut % (Auto) 89.8 Lymph % (Auto) 6.5 Sutton % (Auto) 3.1 Eos % (Auto) 0.1 Baso % (Auto) 0.1 Neut # (Auto) 14.57 H Lymph # (Auto) 1.05 L Sutton # (Auto) 0.51 Eos # (Auto) 0.01 Baso # (Auto) 0.02 Immature Gran # (Auto) 0.07 H Sodium Potassium Chloride Carbon Dioxide Anion Gap BUN Creatinine Est Cr Clr Drug Dosing Est GFR ( Amer) Est GFR (Non-Af Amer) BUN/Creatinine Ratio Glucose Calcium Total Bilirubin AST ALT Alkaline Phosphatase Total Protein Albumin Globulin Albumin/Globulin Ratio Nasal Screen MRSA (PCR) Urine Opiates Screen Ur Methadone, Qual Urine Barbiturates Ur Phencyclidine (PCP) U Amphetamin/Meth Scrn MDMA (Ecstasy) Screen U Benzodiazepines Scrn Ur Cocaine Metabolite U Marijuana (THC) Screen COVID-19 Eval Order SARS-CoV-2, RNA, NAAT Blood Type O Negative Antibody Screen NEGATIVE Screen Negative 05/18/20 12:54 WBC RBC Hgb 8.0 L Hct 23.8 L MCV MCH MCHC RDW Std Deviation RDW Coeff of Jaiden Plt Count MPV Immature Gran % (Auto) Neut % (Auto) Lymph % (Auto) [place] % (Auto) Eos % (Auto) Baso % (Auto) Neut # (Auto) Lymph # (Auto) [place] # (Auto) Eos # (Auto) Baso # (Auto) Immature Gran # (Auto) Sodium Potassium Chloride Carbon Dioxide Anion Gap BUN Creatinine Est Cr Clr Drug Dosing Est GFR ( Amer) Est GFR (Non-Af Amer) BUN/Creatinine Ratio Glucose Calcium Total Bilirubin AST ALT Alkaline Phosphatase Total Protein Albumin Globulin Albumin/Globulin Ratio Nasal Screen MRSA (PCR) Urine Opiates Screen Ur Methadone, Qual Urine Barbiturates Ur Phencyclidine (PCP) U Amphetamin/Meth Scrn MDMA (Ecstasy) Screen U Benzodiazepines Scrn Ur Cocaine Metabolite U Marijuana (THC) Screen COVID-19 Eval Order SARS-CoV-2, RNA, NAAT Blood Type Antibody Screen Screen
--- NOTE | 2020-05-22 14:20 | Discharge Summary (DS) ---
REASON FOR ADMISSION AND HOSPITAL COURSE: The patient is a 34-year-old female 3, para 1, who presents at 40 weeks and 1 day with ruptured membranes. She progressed to 4 cm, had a tachycardia, and despite Pitocin, change of position and IV fluids, the heart tones did not improve. Since she was remote from delivery, a section was performed. This was done under epidural anesthesia without difficulty. Delivery was uncomplicated, delivering a live male. Apgars were 9 and 9. weight was pending. Hospital course was uncomplicated. The patient was discharged home in stable condition. Home going instructions were given. Regular diet on discharge. Follow up in 1 week for incision check. MEDICATIONS ON DISCHARGE: Include Motrin and Percocet. Regular diet on discharge.. FINAL DISCHARGE DIAGNOSIS: Term , delivered by section for nonreassuring heart tones.
== END 2020-05-19 17:18 | disposition home or self-care (01) | DRG 788 ==
LOC: 4S1 07:33 → 4S2 05-16 23:48

== ENCOUNTER 2022-02-19 05:40 | Inpatient (IN) ==
--- NOTE | 2022-01-23 12:33 | History and Physical Report ---
DATE OF ADMISSION: 02/19/2022 The patient is scheduled for section at [facility] on 02/19/2022. HISTORY OF PRESENT ILLNESS: This is a 36-year-old , due date is 02/20/2022 making her 36 weeks today, who presented to the office for an H and P. The patient is undergoing section because of a prior . course has been unremarkable. PAST MEDICAL HISTORY: History of, 1. Anxiety and depression. 2. Pseudo-strokes. PAST SURGICAL HISTORY: History of section. ALLERGIES: THE PATIENT IS ALLERGIC TO CODEINE AND PENICILLIN. SOCIAL HISTORY: Denies tobacco, drug or alcohol use. FAMILY HISTORY: Noncontributory. PHYSICAL EXAMINATION: HEART: S1 and S2, regular rhythm and rate. LUNGS: Clear to auscultation bilaterally. ABDOMEN: Gravid. EXTREMITIES: No cyanosis, clubbing or edema. ASSESSMENT AND PLAN: A 36-year-old 4, para 1, due date 02/20/2022, prior section, w ishes to have repeat section. Discussed with the patient risks of surgery including infecti on, bleeding, and damage to adjacent structures where the surgery is performed. The patient has agre ed and signed consent. Job ID: [id number]
--- NOTE | 2022-02-08 14:48 | Anesthesiology Consultation ---
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 No known COVID infection in the past 90 days. Patient is fully vaccinated for COVID. No known Covid positive exposures or Covid related symptoms. Preop Covid testing scheduled 02/16/22 at [facility]= will await results C section 05/16/20= Pt had epidural in place. Dosed with 2% lido with EPI. Tolerated well. Labor epidural 05/16/20= Done at L3-4 with 1 attempt. History Surgery Operation Date: 02/19/22 07:30 Proposed Procedures p Repeat Section - Zachary Serrato MD Height/Weight Height: 5 ft 2 in Weight: 90.718 kg Allergies Allergy/AdvReac Type Severity Reaction Status Date / Time amoxicillin Allergy Mild Hives Verified 02/08/22 13:55 codeine Allergy Mild Anaphylaxis Verified 02/08/22 13:55 morphine Allergy Mild Anaphylaxis Verified 02/08/22 13:55 Penicillins Allergy Mild Hives,NAUSE Verified 02/08/22 13:55 A Medications Home Medications Medication Instructions Recorded Confirmed Last Taken acetaminophen 325 mg capsule 325 mg PO QID PRN 05/15/20 02/08/22 Unknown (Tylenol) vits no.124-ferrous fum 1 tab PO TID 05/15/20 02/08/22 06/06/20 27 mg iron-folic acid 800 mcg tablet ( Vitamin) ibuprofen 600 mg tablet 600 mg PO Q4H PRN 06/07/20 02/08/22 Unknown esomeprazole magnesium 20 mg 20 - 40 mg PO DAILY PRN 02/08/22 02/08/22 Unknown capsule,delayed release (Nexium) Past Medical History Medical History Anxiety and depression Patient declines but in record. 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 LOSS SPEECH AND MOTOR FUNCTION FOR 3-4 DAYS-RES OLVED-NO ISSUES SINCE Substance abuse Past Family History Family History Father Family history of esophageal cancer Past Surgical History Surgical History H/O wisdom tooth extraction History of anesthesia reaction 05/2020 WITH C SECTION [facility] SHAKING ALOT BEFORE AND DURING, AND AFTERWARDS- VERY COLD History of section Social History Smoking Status: Former smoker tobacco type: cigarettes Smoking cigarettes per day: 13 Do You Dip or Chew Tobacco: No Smoking End Date: 07/2021 Hx Alcohol Use: No Alcohol type: other alcohol intake frequency: a few times a month Hx Substance Use: No substance use type: marijuana Substance Use Type Other:: SOBER FOR 13 YRS FROM DRUGS Last Used Substance: Days (ago) Last Used Substance Other:: 05/12/2020 Testing Other Testing echocardiography 12/11/2021 = normal echocardiogram. Normal tricuspid valve function with no obvious regurgitation.
[2022-02-19] MEDS ORDERED: LACTATED RINGER'S 1,000 ML IV SCH ×2 (05:45→10:00)
[2022-02-19] MEDS ORDERED: SODIUM CHLORIDE 0.9% 250 ML IV PRN (05:47)
[2022-02-19] MEDS ORDERED: CITRIC ACID/SODIUM CITRATE 15 ML UDC PO SCH (06:00)
[2022-02-19 06:13] LABS: Basophils # (auto) 0.04 K/uL (0-0.2); Basophils % (auto) 0.6 %; Eosinophils # (auto) 0.11 K/uL (0-0.50); Eosinophils % (auto) 1.6 %; Hematocrit (blood only) 35.2 % (34.1-44.9); Hemoglobin 12.2 g/dl (12.0-16.0); Immature Granulocytes # (auto) 0.08 K/uL (0.00-0.02); Immature Granulocytes % (auto) 1.1 %; Lymphocytes # (auto) 2.09 K/uL (1.2-3.4); Lymphocytes % (auto) 29.6 %; Mean Corpuscular Hemoglobin 31.9 pg (25.0-34.0); Mean Corpuscular Hgb Conc 34.7 g/dL (32.0-36.0); Mean Corpuscular Volume 91.9 fL (80.0-100.0); Mean Platelet Volume 10.8 fL (9.4-12.3); Monocytes # (auto) 0.36 K/uL (0.24-0.82); Monocytes % (auto) 5.1 %; Neutrophils # (auto) 4.38 K/uL (1.4-6.5); Platelet Count 195 K/uL (130-400); RDW Coefficient of Variation 13.1 % (11.5-14.5); RDW Standard Deviation 43.3 fL (36.4-46.3); Red Blood Count 3.83 M/uL (3.93-5.22); White Blood Count 7.06 K/ul (4.8-10.8)
[2022-02-19] MEDS ORDERED: OXYTOCIN 10 UNITS/ML 10ML VIAL ONE (06:45)
[2022-02-19] MEDS ORDERED: SODIUM CHLORIDE 0.9% INJ 10 ML VIAL ONE (06:46)
[2022-02-19] MEDS ORDERED: fentaNYL citrate 100 MCG/2 ML VIAL IV PRN (07:00)
[2022-02-19] MEDS ORDERED: ePHEDrine sulfate 50 MG/ML AMP IV PRN (07:00)
[2022-02-19] MEDS ORDERED: ONDANSETRON INJ 2 MG/ML 2 ML VIAL IV PRN ×2 (07:00→09:47)
[2022-02-19] MEDS ORDERED: ATROPINE SULFATE 0.1 MG/ML 10ML SYR IV PRN (07:00)
[2022-02-19] MEDS ORDERED: KETOROLAC 30 MG/ML VIAL IV PRN (07:00)
--- NOTE | 2022-02-19 07:14 | History & Physical Bridge Note ---
Date of Service February 19, 2022 History & Physical Bridge Note I have examined the patient, reviewed the History & Physical and in the interval since the performance of the History & Physical I have noted the following changes of clinical significance: no changes noted
[2022-02-19] MEDS ORDERED: ceFAZolin 2000MG 2,000 MG/15 ML SYR IV ONE (07:40)
[2022-02-19] MEDS ORDERED: PHENYLEPHRINE 100MCG/ML 5ML SYR ONE (08:07)
[2022-02-19] MEDS ORDERED: ePHEDrine sulfate 50 MG/ML SYR ONE (08:07)
[2022-02-19] MEDS ORDERED: KETOROLAC 30 MG/ML VIAL ONE (08:40)
[2022-02-19] MEDS ORDERED: ONDANSETRON INJ 2 MG/ML 2 ML VIAL ONE (08:40)
[2022-02-19] MEDS ORDERED: DIPHTHERIA/TETANUS/PERTUSSIS 0.5 ML SYR/VIAL IM ONE (09:47)
[2022-02-19] MEDS ORDERED: PROMETHAZINE HCL 25 MG in SODIUM CHLORIDE 0.9% 50 ML IV PRN (09:47)
[2022-02-19] MEDS ORDERED: HYDROCORTISONE ACETATE 25 MG SUPP PR PRN (09:47)
[2022-02-19] MEDS ORDERED: BENZOCAINE 20% AER SPR 82.5 GM CAN EXT PRN (09:47)
[2022-02-19] MEDS ORDERED: diphenhydrAMINE 50 MG/ML VIAL IV PRN (09:47)
[2022-02-19] MEDS ORDERED: MEPERIDINE HCL 50 MG/ML CARP IV PRN (09:47)
[2022-02-19] MEDS ORDERED: SENNA 8.6 MG TAB PO PRN (09:47)
[2022-02-19] MEDS ORDERED: diphenhydrAMINE Capsule 25 MG CAP PO PRN (09:47)
[2022-02-19] MEDS ORDERED: MAGNESIUM HYDROXIDE SUSP 30 ML UDC PO PRN (09:47)
--- NOTE | 2022-02-19 09:55 | Post Operative Brief Note ---
Immediate Post Op Note v1 Date of Surgery February 19, 2022 Pre & Post Diagnosis Operation Date: 02/19/22 07:30 Pre-Op Diagnosis: Elective Repeat Caesarean Section Post-Op Diagnosis: Same;Delivery of a live male child at 0827 I identified the patient and participated in the time-out.: Yes Procedure Operation Date: 02/19/22 07:30 Actual Procedures p Repeat Section - Zachary Serrato MD Surgeon Zachary Serrato MD Borderer Dr. Spaulding Estimated Blood Loss 500 Findings Consistent with Post-Op Diagnosis Live male Apgars 9/9 Fluids LR Specimens placenta Drains Jones Catheter Complications none Disposition Accompanied Patient To Recovery: Yes Disposition: L&D Overlapping Procedure I was present for: the critical portions of procedure. I was immediately available: during the entire case. Back up surgeon: used during listed procedure.
--- NOTE | 2022-02-19 10:29 | Anesthesiology Progress Note ---
Date of Service February 19, 2022 Anesthesia Post Procedure Vital Signs Vital Signs: Temp Pulse Resp BP Pulse Ox 02/19/22 10:21 60 18 122/60 100 02/19/22 10:13 53 L 18 138/59 L 97 02/19/22 10:03 62 18 130/74 91 02/19/22 09:53 71 18 110/76 96 02/19/22 09:42 60 18 131/71 100 02/19/22 09:33 58 L 18 118/69 100 02/19/22 09:20 35.3 C L 59 L 16 122/60 100 02/19/22 07:15 36.5 C 57 L 16 109/72 02/19/22 06:02 36.5 C 18 02/19/22 10:27 64 100 02/19/22 10:22 66 98 02/19/22 10:23 60 122/60 02/19/22 10:17 59 L 100 02/19/22 10:12 97 02/19/22 10:12 62 02/19/22 10:13 59 L 138/59 L 02/19/22 10:12 66 91 02/19/22 10:07 99 02/19/22 10:07 69 02/19/22 10:07 80 91 02/19/22 10:02 90 02/19/22 10:02 82 02/19/22 10:03 62 130/74 02/19/22 10:02 67 91 02/19/22 09:57 62 100 02/19/22 09:52 70 91 02/19/22 09:53 75 110/76 02/19/22 09:47 80 100 02/19/22 09:42 55 L 131/71 100 02/19/22 09:37 58 L 100 02/19/22 09:32 67 98 02/19/22 09:33 118/69 02/19/22 09:27 58 L 100 02/19/22 09:22 57 L 100 02/19/22 09:20 59 L 122/60 02/19/22 07:16 57 L 109/72 02/19/22 05:52 71 101/61 Pain Intensity Lower Medial Abdomen: Pain Intensity: 4 Transfer of Care Handoff Completed per policy Notes Mental Status: alert / awake / arousable and participated in evaluation Patient Amnestic to Procedure: Yes Nausea / Vomiting: adequately controlled Pain: adequately controlled Airway Patency, RR, SpO2: stable & adequate BP & HR: stable & adequate Hydration State: stable & adequate Neuraxial Anesthesia: was administered and sensory block is resolving Anesthetic Complications: no major complications apparent and Pt Satisfied with anesthetic care
[2022-02-19] MEDS ORDERED: ACETAMINOPHEN 1000 MG/100 ML IV IV PRN (11:06)
[2022-02-19] MEDS ORDERED: PANTOprazole 40 MG TAB PO PRN (11:07)
[2022-02-19] MEDS: OXYTOCIN 30 UNITS in LACTATED RINGER'S 1,000 ML IV SCH ×2 (11:11→19:44)
--- NOTE | 2022-02-19 12:24 | Operative Report (OR) ---
DATE OF SURGERY: 02/19/2022. PREOPERATIVE DIAGNOSIS: Elective term repeat section. POSTOPERATIVE DIAGNOSIS: Elective term repeat section. PROCEDURE: Repeat section, low segment transverse. SURGEON: Zachary Serrato MD PRINCIPAL ENGINEER: Kiran Spaulding MD ANESTHESIA: Spinal. FINDINGS: Live male, Apgars 9 and 9, 7 pounds 8.9 ounces. COMPLICATIONS: None. DRAINS: Jones. ESTIMATED BLOOD LOSS: 500 mL. CLINICAL HISTORY: The patient is a 36-year-old female, para 1-1-1-1 at 39 weeks and 6 days, admitted for an elective repeat section. The patient was given informed consent including the risks, benefits, and alternatives to the procedure. A 2 grams of Ancef were given preop and a timeout was called prior to the start of the procedure. DESCRIPTION OF PROCEDURE: Under satisfactory spinal anesthesia, the patient was prepped and draped in the usual sterile fashion. A low Pfannenstiel incision through a prior scar was then made, carrying the incision down into layers through the abdomen until entering into the peritoneal cavity. Pickups with teeth and Metzenbaum scissors were then used to develop a bladder flap, which was sharply dissected down. A low segment transverse incision over the lower uterine segment was then made. Incision was nicked with an Allis clamp. Clear fluid was noted. The incision was widened in the AP diameter and with the aid of fundal pressure, the delivered from the vertex presentation. There was delayed cord clamping for 1 minute with a viable male in the vertex presentation with Apgars of 9 and 9, 7 pounds 8.9 ounces. Cord blood was obtained. Placenta was then delivered spontaneously and intact, submitted to pathology as a separate specimen. The uterus was then exteriorized. Ring forceps were then placed on both angles in the inferior margin, another ring used to dilate the cervix. The uterus was closed in double layer closure starting with 0 Vicryl suture in a continuous interlocking fashion followed by a second imbricating suture of 0 Vicryl suture. Tubes and ovaries bilaterally were found to be within normal limits. The contents of the pelvic and abdominal cavity were then irrigated to clear. No active bleeding was noted. After the initial sponge, needle, and instrument count were found to be correct, the patient's uterus was placed back into the normal anatomical position. The gutters were inspected and cleaned. No active bleeding was noted. The muscle was reapproximated with 0 Vicryl suture and the fascia was then reapproximated from both ends using 0 Vicryl suture in a continuous fashion. Subcuticular space was irrigated, bleeders were cauterized. Subcuticular layer was closed with 3-0 plain suture in a running fashion and 4-0 Monocryl was then used to close the skin layer. Steri-Strips were then applied along with Telfa dressing and the OG dressing. Clear urine was noted at the end of the procedure. The estimated blood loss was 500 mL. The final sponge, needle and instrument count were found to be correct. The patient was then placed supine on a stretcher and taken to recovery room in stable condition. Please note that Dr. Spaulding was present for the case. He was involved with participating and exposure, pushing out the vertex and fundal pressure, help with closing the uterus and abdomen and retraction. Job ID: [id number] [facility]
[2022-02-19] MEDS: SIMETHICONE 80 MG CHEW PO SCH ×3 (13:33→21:44)
[2022-02-19] MEDS ORDERED: PRENATAL VITAMIN 1 TAB PO SCH (14:00)
[2022-02-19] MEDS: KETOROLAC 30 MG/ML VIAL IV PRN ×2 (14:23→19:52)
[2022-02-19] MEDS: FERROUS SULFATE 325 MG TAB PO SCH (21:44)
[2022-02-19] MEDS: DOCUSATE SODIUM 100 MG CAP PO SCH (21:44)
[2022-02-20] MEDS: IBUPROFEN 600 MG TAB PO PRN ×5 (00:30→21:05)
[2022-02-20 06:17] LABS: Basophils # (auto) 0.03 K/uL (0-0.2); Basophils % (auto) 0.4 %; Eosinophils # (auto) 0.04 K/uL (0-0.50); Eosinophils % (auto) 0.5 %; Hematocrit (blood only) 31.8 % (34.1-44.9); Hemoglobin 10.9 g/dl (12.0-16.0); Immature Granulocytes # (auto) 0.06 K/uL (0.00-0.02); Immature Granulocytes % (auto) 0.7 %; Lymphocytes # (auto) 1.03 K/uL (1.2-3.4); Lymphocytes % (auto) 12.6 %; Mean Corpuscular Hemoglobin 32.4 pg (25.0-34.0); Mean Corpuscular Hgb Conc 34.3 g/dL (32.0-36.0); Mean Corpuscular Volume 94.6 fL (80.0-100.0); Mean Platelet Volume 10.4 fL (9.4-12.3); Monocytes # (auto) 0.37 K/uL (0.24-0.82); Monocytes % (auto) 4.5 %; Neutrophils # (auto) 6.62 K/uL (1.4-6.5); Neutrophils % (auto) 81.3 %; Platelet Count 154 K/uL (130-400); RDW Coefficient of Variation 13.4 % (11.5-14.5); RDW Standard Deviation 45.6 fL (36.4-46.3); Red Blood Count 3.36 M/uL (3.93-5.22); White Blood Count 8.15 K/ul (4.8-10.8)
--- NOTE | 2022-02-20 07:29 | Obstetrical Progress Note ---
Date of Service February 20, 2022 Assessment & Plan Admission and Anticipated Discharge Date Admission Date: February 19, 2022 Subjective Patient is seen and examined. She feels well, no complaints other than being sore on incision Pain is under control partially with oral meds. She took Motrin only and desires Percocet. She states she took Percocet last time when she had C section and no reaction nor side effects. Ambulating without dizziness. Voiding without difficulty Tolerating regular diet with out N&V Flatus + BM none Bleeding is minimal No fever/ chills/ CP/ SOB/ N&V/ Leg pain Breast feeding without problems Vital Signs Temp Pulse Resp BP Pulse Ox O2 Del Method 02/20/22 04:30 36.7 C 69 18 111/73 98 Room Air 02/19/22 23:30 36.7 C 64 16 95/61 L 98 Room Air 02/19/22 21:20 36.7 C 71 20 100/58 L 97 Room Air 02/19/22 21:30 20 99 02/19/22 20:45 20 99 02/19/22 19:45 20 98 Intake & Output 02/19/22 02/20/22 02/20/22 22:59 06:59 14:59 Intake Total 1003 / 2503 Output Total 375 / 2345 720 / 2345 Balance 628 / 158 -720 / 158 Intake: IV 1003 / 1003 Oxytocin 30 units In Lactated 1003 / 1003 Ringer's 1,000 ml @ 125 mls/hr IV .Q8H2M [facility] Rx#:[id number] Output: Urine 720 / 720 Urine Amount (Catheter) 375 / 1125 Jones/Indwelling 375 / 1125 Lab Results 02/19/22 02/19/22 02/20/22 Range/Units 05:56 05:56 05:57 WBC 7.06 8.15 (4.8-10.8) K/ul RBC 3.83 L 3.36 L (3.93-5.22) M/uL Hgb 12.2 10.9 L (12.0-16.0) g/dl Hct 35.2 31.8 L (34.1-44.9) % MCV 91.9 94.6 (80.0-100.0) fL MCH 31.9 32.4 (25.0-34.0) pg MCHC 34.7 34.3 (32.0-36.0) g/dL RDW Std Deviation 43.3 45.6 (36.4-46.3) fL RDW Coeff of Jaiden 13.1 13.4 (11.5-14.5) % Plt Count 195 154 (130-400) K/uL MPV 10.8 10.4 (9.4-12.3) fL Immature Gran % (Auto) 1.1 0.7 % Neut % (Auto) 62.0 81.3 % Lymph % (Auto) 29.6 12.6 % Craig % (Auto) 5.1 4.5 % Eos % (Auto) 1.6 0.5 % Baso % (Auto) 0.6 0.4 % Neut # (Auto) 4.38 6.62 H (1.4-6.5) K/uL Lymph # (Auto) 2.09 1.03 L (1.2-3.4) K/uL Craig # (Auto) 0.36 0.37 (0.24-0.82) K/uL Eos # (Auto) 0.11 0.04 (0-0.50) K/uL Baso # (Auto) 0.04 0.03 (0-0.2) K/uL Immature Gran # (Auto) 0.08 H 0.06 H (0.00-0.02) K/uL Blood Type O Negative Antibody Screen NEGATIVE Crossmatch See Detail PE: General: Alert, orientedx3, NAD CVS: S1S2 RRR Lungs; CTAB Abd: soft, NT, ND, BS+, fundus firm, below Umbilicus Incision: Dressing, Clean, dry, intact, there is marked bloody area in the middle about 5x5 cm, stable Perineum intact, Lochia rubra minimal Ext; NT, no edema AP: 36 yo s/p C Section, pod# 1 VSS Afebrile doing well Continue routine postop care Encourage ambulation, PO intake All questions were answered D/C home tomorrow Results & Data ([facility]) Vital Signs (Past 12 Hours) Vital Signs Temp Pulse Resp BP Pulse Ox O2 Del Method 02/20/22 04:30 36.7 C 69 18 111/73 98 Room Air 02/19/22 23:30 36.7 C 64 16 95/61 L 98 Room Air 02/19/22 21:20 36.7 C 71 20 100/58 L 97 Room Air 02/19/22 21:30 20 99 02/19/22 20:45 20 99 02/19/22 19:45 20 98
[2022-02-20] MEDS ORDERED: FERROUS SULFATE 325 MG TAB PO SCH (08:00)
[2022-02-20] MEDS: SIMETHICONE 80 MG CHEW PO SCH ×4 (08:25→20:01)
[2022-02-20] MEDS: FERROUS SULFATE 325 MG TAB PO SCH ×2 (08:25→20:02)
[2022-02-20] MEDS: DOCUSATE SODIUM 100 MG CAP PO SCH ×2 (08:25→20:01)
[2022-02-20] MEDS: KETOROLAC 30 MG/ML VIAL IV PRN (08:25)
[2022-02-20] MEDS: PRENATAL VITAMIN 1 TAB PO SCH (08:25)
[2022-02-20] MEDS: oxyCODONE/ACETAMINOPHEN 5mg/325mg TAB PO PRN ×4 (08:27→21:08)
[2022-02-20] MEDS ORDERED: bisacodyL 5 MG TABEC PO SCH (20:00)
[2022-02-21] MEDS: IBUPROFEN 600 MG TAB PO PRN ×3 (03:18→12:08)
[2022-02-21] MEDS: oxyCODONE/ACETAMINOPHEN 5mg/325mg TAB PO PRN ×3 (03:18→12:07)
[2022-02-21 06:13] LABS: Hematocrit (blood only) 30.8 % (34.1-44.9); Hemoglobin 10.4 g/dl (12.0-16.0)
[2022-02-21] MEDS: SIMETHICONE 80 MG CHEW PO SCH ×2 (08:15→12:09)
[2022-02-21] MEDS: FERROUS SULFATE 325 MG TAB PO SCH (08:16)
[2022-02-21] MEDS: PRENATAL VITAMIN 1 TAB PO SCH (08:16)
[2022-02-21] MEDS: DOCUSATE SODIUM 100 MG CAP PO SCH (08:16)
[2022-02-21] MEDS ORDERED: bisacodyL 10 MG SUPP PR PRN (09:47)
--- NOTE | 2022-02-21 10:08 | Obstetrical Progress Note ---
Date of Service February 21, 2022 Subjective Ambulation: ambulating normally Voiding: no voiding problems Passing Gas:: Yes Diet Tolerance:: regular diet Lochia:: Small Feeding Type:: breast feeding Current Pain Level(1-10): 0 doing well plans for d/c today Physical Exam Constitutional WD/WN, vitals as above Gastrointestinal (Abdomen) normal bowel sounds, soft, nontender, no hepatosplenomegaly Inspection/Auscultation: abdomen normal to inspection and + abdominal surgical incision Musculoskeletal Extremities: extremities normal to inspection no edema. neg Hoamn's Skin no rashes, warm and dry Neurologic patellar DTR's 2+ bilat, sensation intact Results & Data ([facility]) Vital Signs (Past 12 Hours) Vital Signs Temp Pulse Resp BP Pulse Ox O2 Del Method 02/20/22 23:00 36.5 C 70 16 111/67 98 Room Air Laboratory Results 02/19/22 02/19/22 02/20/22 05:56 05:56 05:57 WBC 7.06 RBC 3.83 L Hgb 12.2 Hct 35.2 MCV 91.9 MCH 31.9 MCHC 34.7 RDW Std Deviation 43.3 RDW Coeff of Jaiden 13.1 Plt Count 195 MPV 10.8 Immature Gran % (Auto) 1.1 Neut % (Auto) 62.0 Lymph % (Auto) 29.6 [place] % (Auto) 5.1 Eos % (Auto) 1.6 Baso % (Auto) 0.6 Neut # (Auto) 4.38 Lymph # (Auto) 2.09 [place] # (Auto) 0.36 Eos # (Auto) 0.11 Baso # (Auto) 0.04 Immature Gran # (Auto) 0.08 H Blood Type O Negative O Negative Antibody Screen NEGATIVE Cancelled Screen Negative Crossmatch See Detail 02/20/22 02/21/22 05:57 06:00 WBC 8.15 RBC 3.36 L Hgb 10.9 L 10.4 L Hct 31.8 L 30.8 L MCV 94.6 MCH 32.4 MCHC 34.3 RDW Std Deviation 45.6 RDW Coeff of Jaiden 13.4 Plt Count 154 MPV 10.4 Immature Gran % (Auto) 0.7 Neut % (Auto) 81.3 Lymph % (Auto) 12.6 [place] % (Auto) 4.5 Eos % (Auto) 0.5 Baso % (Auto) 0.4 Neut # (Auto) 6.62 H Lymph # (Auto) 1.03 L [place] # (Auto) 0.37 Eos # (Auto) 0.04 Baso # (Auto) 0.03 Immature Gran # (Auto) 0.06 H Blood Type Antibody Screen Screen Crossmatch
== END 2022-02-21 12:45 | disposition home or self-care (01) | DRG 788 ==
LOC: 4S1 05:40 → EDSTATUS 07:30 → 4E2 13:35